=== PATIENT | female | born 1995 | race American Indian/Alaskan Native ===

== ENCOUNTER 2020-03-16 18:59 | Emergency (ER) | payer MEDICAID ==
[2020-03-16] MEDS ORDERED: DIPHtheria,PERTUSSIS(ACELL),TETANUS VACCINE/PF 0.5 ML VIAL IM ONE (20:09)
[2020-03-16] MEDS ORDERED: HYDROcodone/ACETAMINOPHEN 5-325 MG TAB PO ONE (20:10)
[2020-03-16] MEDS ORDERED: ONDANSETRON 4 MG ODT TAB PO ONE (20:10)
--- NOTE | 2020-03-16 20:34 | Emergency Department Report ---
Burn HPI - History Stated Complaint: RT INDEX FINGER Chief Complaint: Burn/Smoke Inhalation Duration of Burn: 2 Days Burn Location: Other (right index finger burn injury) Burn Etiology: Accidental, Scald (hot grease) Pain: Moderate Tetanus Status: Not up to Date (Given during this visit) Symptoms:: Yes Blistering (with open wound), Yes Able to Tolerate Fluids, No Malaise, No Myalgias, No Fever, No Vomiting Other History: Patient is a 24 yo AA female with a h/o obesity who presents to the ED with c/o acute onset persistent painful open blistered burn wound on dorsal right index finger after she acidentally got burned on right index finger with a hot grease 2 days ago. Patient states that she is not upto date with her Tetanus vaccination. Patient denies fever, chills, nausea, vomiting, dizziness, LOC or headache, fall or numbness and tingling or weakness of right index finger. - Home Meds and Allergies Home Medications: Previous Rx's Medication Instructions Recorded Last Taken Type Acetaminophen/Codeine [Tylenol 1 tab PO Q6H PRN #10 tab 03/16/20 Unknown Rx /Codeine # 3 tab] Ibuprofen [Motrin] 800 mg PO Q8HR PRN #24 tablet 03/16/20 Unknown Rx Silver Sulfadiazine [Silvadene] 25 gm TP BID #1 cream..g. 03/16/20 Unknown Rx Allergies/Adverse Reactions: Allergies Allergy/AdvReac Type Severity Reaction Status Date / Time No Known Allergies Allergy Verified 03/16/20 20:12 ED Review of Systems ROS: Stated complaint: RT INDEX FINGER Other details as noted in HPI Constitutional: denies: chills, fever Eyes: denies: eye pain, eye discharge, vision change ENT: denies: ear pain, throat pain Respiratory: denies: cough, shortness of breath, wheezing Cardiovascular: denies: chest pain, palpitations Endocrine: no symptoms reported Gastrointestinal: denies: abdominal pain, nausea, diarrhea Genitourinary: denies: urgency, dysuria, discharge Musculoskeletal: arthralgia (dorsal right index finger blistered painful burn wound). denies: back pain, joint swelling Skin: other (Open blistered burn wound on dorsal right index finger). denies: rash, lesions Neurological: denies: headache, weakness, paresthesias Psychiatric: denies: anxiety, depression Hematological/Lymphatic: denies: easy bleeding, easy bruising ED Past Medical Hx - Past Medical History Previous Medical History?: No - Surgical History Past Surgical History?: No - Social History Smoking Status: Never Smoker Substance Use Type: None - Medications Home Medications: Home Medications Medication Instructions Recorded Confirmed Last Taken Type Acetaminophen/Codeine [Tylenol 1 tab PO Q6H PRN #10 tab 03/16/20 Unknown Rx /Codeine # 3 tab] Ibuprofen [Motrin] 800 mg PO Q8HR PRN #24 tablet 03/16/20 Unknown Rx Silver Sulfadiazine [Silvadene] 25 gm TP BID #1 cream..g. 03/16/20 Unknown Rx Exam - Exam General: Vital signs noted. No distress. Alert and acting appropriately. HEENT: Yes Moist Mucous Membranes, No Conjuctival Injection, No Corneal Edema Skin: Yes Blistering (open blistered burn wound on dorsal right index finger ), Yes Tenderness (right index finger), No Erythroderma, No Edema Exam: Yes Normal Heart Sounds, No Respiratory Distress, No Sensory Deficits, No Musculoskeletal Pain Exam: Normal physical exam findings except as stated ED Course Vital Signs 03/16/20 19:54 Temperature 98.2 F Pulse Rate 85 Respiratory 20 Rate Blood Pressure 124/92 O2 Sat by Pulse 98 Oximetry ED Medical Decision Making - Medical Decision Making This is a 24 yo AA female with a h/o obesity who presents to the ED with c/o acute onset persistent painful open blistered burn wound on dorsal right index finger after she acidentally got burned on right index finger with a hot grease 2 days ago. Patient states that she is not upto date with her Tetanus vaccination. In the ED, patient is alert and oriented x 3 and is in no acute distress. Patient was treated for pain in the ED, and also given Tetanus booster vaccination. The dorsal right index finger open blistered burn wound was cleaned and silvadene cream applied to the same. The wound was then dressed appropriately and patient discharged home on pain medications and silvadene cream. Patient was discharged home and advised to follow up with her PCP in 5-7 days for reevaluation. Patient was also referred to the Burn clinic for follow up. Patient was advised to return to the ED immediately if symptoms get worse. - Differential Diagnosis burn injury; cellulitis; wound infection Critical care attestation.: If time is entered above; I have spent that time in minutes in the direct care of this critically ill patient, excluding procedure time. ED Disposition Clinical Impression: Second degree burn of finger of right hand Qualifiers: Encounter type: initial encounter Qualified Code(s): T23.221A - Burn of second degree of single right finger (nail) except thumb, initial encounter Disposition: DC- TO HOME OR SELFCARE Is pt being admited?: No Does the pt Need Aspirin: No Condition: Stable Instructions: Burn Care, Adult, [id number], Second-Degree Burn, Adult Additional Instructions: FOLLOW UP WITH THE WOUND CLINIC ADVISED. CONSIDER FOLLOWING UP WITH YOUR PRIMARY CARE PHYSICIAN ADVISED. RETURN TO THE ED IMMEDIATELY IF SYMPTOMS GET WORSE Prescriptions: Ibuprofen [Motrin] 800 mg PO Q8HR PRN #24 tablet PRN Reason: Pain , Severe (7-10) Silver Sulfadiazine [Silvadene] 25 gm TP BID #1 cream..g. Acetaminophen/Codeine [Tylenol /Codeine # 3 tab] 1 tab PO Q6H PRN #10 tab PRN Reason: Pain , Severe (7-10) Referrals: [facility] [Outside] - 3-5 Days [facility] [Provider Group] - 3-5 Days Time of Disposition: 20:43 Print Language: URDU
[2020-03-16 21:11] VITALS: BP 128/76
== END 2020-03-16 21:10 | disposition home or self-care (01) ==
LOC: ED 18:59
DX: T23.221A Burn of second degree of single right finger (nail) except thumb, initial encounter (principal); Z79.1 Long term (current) use of non-steroidal anti-inflammatories (NSAID); Z79.899 Other long term (current) drug therapy; X12.XXXA Contact with other hot fluids, initial encounter; Y93.89 Activity, other specified; Y92.89 Other specified places as the place of occurrence of the external cause; Y99.8 Other external cause status
CPT/HCPCS: 90471; 90715; 99282; Q0162

== ENCOUNTER 2020-07-13 19:15 | Inpatient (IN) | payer MEDICAID ==
[2020-07-13 20:52] LABS: Bacteria,Urine 4+ /HPF (Negative); Bilirubin,Urine NEG (Negative); Blood,Urine MOD (Negative); Color,Urine Amber (Yellow); Mucus,Urine 2+ /HPF
[2020-07-13 20:55] LABS: WBC,Urine > 182.0 /HPF (0.0-6.0)
[2020-07-13 20:56] LABS: HCG Qualitative,Urine Negative (Negative)
[2020-07-13] MEDS ORDERED: ONDANSETRON 4 MG/2 ML INJ IV ONE (21:15)
[2020-07-13] MEDS ORDERED: SODIUM CHLORIDE 0.9% 1000 ML 1,000 ML IV ONE ×2 (21:15→23:01)
[2020-07-13] MEDS ORDERED: FAMOTIDINE 20 MG/2 ML INJ IV ONE (21:15)
--- NOTE | 2020-07-13 21:16 | Emergency Department Report ---
ED General Adult HPI - General Chief complaint: Nausea/Vomiting/Diarrhea Stated complaint: STOMACH PAIN Time Seen by Provider: 07/13/20 21:14 Source: patient Mode of arrival: Ambulatory Limitations: No Limitations - History of Present Illness Initial comments: 24-year-old -[place] female patient presents with complaints of sore throat x2 days. Patient states a history of recurrent strep as a child and had her tonsils removed. She states she gets pharyngitis at least once a year since then. She rates her current pain is 8/10 in severity and has not tried any OTC medication for pain. Pain worsens with swallowing, but she denies any diffi culties in swallowing or trouble opening her jaw. No cough, shortness of breath, chest pain, or rash per patient. She denies any other past medical history. -: Sudden - Related Data Previous Rx's Medication Instructions Recorded Last Taken Type Acetaminophen/Codeine [Tylenol 1 tab PO Q6H PRN #10 tab 03/16/20 Unknown Rx /Codeine # 3 tab] Silver Sulfadiazine [Silvadene] 25 gm TP BID #1 cream..g. 03/16/20 Unknown Rx Azithromycin [Zithromax Z-MATT] 0 mg PO DAILY #6 tab 07/14/20 Unknown Rx Ibuprofen [Motrin 800 MG tab] 800 mg PO Q8HR PRN #24 tablet 07/14/20 Unknown Rx Allergies Allergy/AdvReac Type Severity Reaction Status Date / Time No Known Allergies Allergy Verified 03/16/20 20:12 ED Review of Systems ROS: Stated complaint: STOMACH PAIN Other details as noted in HPI Constitutional: malaise. denies: chills, fever ENT: throat pain Respiratory: denies: cough, shortness of breath Cardiovascular: denies: chest pain Gastrointestinal: denies: nausea, vomiting Skin: denies: change in color Neurological: denies: headache Hematological/Lymphatic: swollen glands ED Past Medical Hx - Past Medical History Previous Medical History?: No - Surgical History Past Surgical History?: No - Social History Smoking Status: Never Smoker Substance Use Type: None - Medications Home Medications: Home Medications Medication Instructions Recorded Confirmed Last Taken Type Acetaminophen/Codeine [Tylenol 1 tab PO Q6H PRN #10 tab 03/16/20 Unknown Rx /Codeine # 3 tab] Silver Sulfadiazine [Silvadene] 25 gm TP BID #1 cream..g. 03/16/20 Unknown Rx Azithromycin [Zithromax Z-MATT] 0 mg PO DAILY #6 tab 07/14/20 Unknown Rx Ibuprofen [Motrin 800 MG tab] 800 mg PO Q8HR PRN #24 tablet 07/14/20 Unknown Rx ED Physical Exam - General Limitations: No Limitations General appearance: alert, in no apparent distress - Head Head exam: Present: atraumatic, normocephalic - Eye Eye exam: Present: normal appearance - Expanded ENT Exam Expanded Throat exam: Positive: other (Tonsils are surgically absent; significant erythema of the posterior pharynx noted) - Neck Neck exam: Present: full ROM, lymphadenopathy (Mild anterior cervical). Absent: tenderness - Respiratory Respiratory exam: Present: normal lung sounds bilaterally. Absent: respiratory distress - Cardiovascular Cardiovascular Exam: Present: tachycardia (Mild) - Neurological Exam Neurological exam: Present: alert, oriented X3, normal gait - Psychiatric Psychiatric exam: Present: normal affect, normal mood - Skin Skin exam: Present: warm, dry, intact, normal color. Absent: rash, diaphoretic, petechiae, pallor ED Course Vital Signs 07/13/20 07/13/20 20:01 22:41 Temperature 99.1 F Pulse Rate 114 H 97 H Respiratory 20 18 Rate Blood Pressure 123/82 O2 Sat by Pulse 96 100 Oximetry ED Medical Decision Making - Lab Data Result diagrams: 07/13/20 21:00 07/13/20 21:00 - Radiology Data Radiology results: report reviewed CT ABDOMEN AND PELVIS WITH CONTRAST INDICATION / CLINICAL INFORMATION: Diffuse abdominal pain, worse in mid-upper region. TECHNIQUE: Axial CT images were obtained through the abdomen and pelvis after IV contrast. All CT scans at this location are performed using CT dose reduction for [facility] by means of automated exposure control. COMPARISON: None available. FINDINGS: LOWER CHEST: No significant abnormality. LIVER: Diffuse fatty infiltration. Small lipoma lateral right lobe. GALLBLADDER: No significant abnormality. BILE DUCTS: No significant abnormality. PANCREAS: No significant abnormality. SPLEEN: No significant abnormality. ADRENALS: No significant abnormality. RIGHT KIDNEY / URETER: No significant abnormality. LEFT KIDNEY / URETER: Abnormal enhancement more discrete low-density area measuring 2.1 cm along the anterior medial aspect. Adjacent inflammation. There are also adjacent nodes with the largest measuring 9 mm no greatest short axis dimension. STOMACH / SMALL BOWEL: No significant abnormality. COLON: No significant abnormality. APPENDIX: No significant abnormality. PERITONEUM: No free fluid. No free air. No fluid collection. LYMPH NODES: No significant adenopathy. VASCULAR STRUCTURES: No significant abnormality. URINARY BLADDER: No significant abnormality. REPRODUCTIVE ORGANS: Complex cystic lesion right ovary measuring 4.4 x 2.5 cm. ADDITIONAL FINDINGS: None. SKELETAL SYSTEM: No significant abnormality. IMPRESSION: 1. Pyelonephritis left kidney with possible abscess. Adjacent inflammation and reactive appearing adenopathy. 2. Complex lesion right ovary. This may represent multiple cysts. This could be better evaluated with ultrasound as clinically indicated. - Medical Decision Making 24-year-old -[place] female patient presents with complaints of sore throat x2 days. Patient states a history of recurrent strep as a child and had her tonsils removed. She states she gets pharyngitis at least once a year since then. She rates her current pain is 8/10 in severity and has not tried any OTC medication for pain. Pain worsens with swallowing, but she denies any difficulties in swallowing or trouble opening her jaw. No cough, shortness of breath, chest pain, or rash per patient. She denies any other past medical history. Patient given Tylenol and ibuprofen. Heart rate now normal and temp now 98.5. Will treat for pharyngitis. Recommend follow-up with ENT, referral provided. Patient is nontoxic-appearing and stable for discharge home. Discussed signs and symptoms that should prompt immediate return to the emergency department in detail with patient who verbalizes understanding. Critical care attestation.: If time is entered above; I have spent that time in minutes in the direct care of this critically ill patient, excluding procedure time. ED Disposition Clinical Impression: Acute bacterial pharyngitis Disposition: DC- TO HOME OR SELFCARE Is pt being admited?: No Condition: Stable Instructions: Pharyngitis Prescriptions: Ibuprofen [Motrin 800 MG tab] 800 mg PO Q8HR PRN #24 tablet PRN Reason: pain/fever Azithromycin [Zithromax Z-MATT] 0 mg PO DAILY #6 tab Referrals: [facility] [Provider Group] - 3-5 Days [facility] [Provider Group] - 3-5 Days Forms: Work/School Release Form(ED)
[2020-07-13 21:25] LABS: Hemoglobin 13.4 gm/dl (10.1-14.3); Mean Corpuscular HGB Conc 34 % (30-34); Mean Corpuscular Volume 91 fl (79-97); Platelet Count 177 K/mm3 (140-440); Red Cell Distribution Width 14.4 % (13.2-15.2)
[2020-07-13 21:43] LABS: Alanine Aminotransferase 15 units/L (7-56); Albumin 3.9 g/dL (3.9-5); Blood Urea Nitrogen 5 mg/dL (7-17); Calcium 8.5 mg/dL (8.4-10.2); Hemolysis Index 25
[2020-07-13 21:44] LABS: BUN/Creatinine Ratio 7
[2020-07-13] MEDS ORDERED: cefTRIAXone/NS 1 GM/50 ML 1 GM/50 ML BAG IV ONE (21:44)
[2020-07-13] MEDS ORDERED: MORPHINE 4 MG/1 ML INJ IV ONE (21:47)
--- NOTE | 2020-07-13 23:04 | Cat Scan Report ---
CT ABDOMEN AND PELVIS WITH CONTRAST INDICATION / CLINICAL INFORMATION: Diffuse abdominal pain, worse in mid-upper region. TECHNIQUE: Axial CT images were obtained through the abdomen and pelvis after IV contrast. All CT sc ans at this location are performed using CT dose reduction for [facility] by means of automated exposure c ontrol. COMPARISON: None available. FINDINGS: LOWER CHEST: No significant abnormality. LIVER: Diffuse fatty infiltration. Small lipoma lateral right lobe. GALLBLADDER: No significant abnormality. BILE DUCTS: No significant abnormality. PANCREAS: No significant abnormality. SPLEEN: No significant abnormality. ADRENALS: No significant abnormality. RIGHT KIDNEY / URETER: No significant abnormality. LEFT KIDNEY / URETER: Abnormal enhancement more discrete low-density area measuring 2.1 cm along the anterior medial aspect. Adjacent inflammation. There are also adjacent nodes with the largest measuri ng 9 mm no greatest short axis dimension. STOMACH / SMALL BOWEL: No significant abnormality. COLON: No significant abnormality. APPENDIX: No significant abnormality. PERITONEUM: No free fluid. No free air. No fluid collection. LYMPH NODES: No significant adenopathy. VASCULAR STRUCTURES: No significant abnormality. URINARY BLADDER: No significant abnormality. REPRODUCTIVE ORGANS: Complex cystic lesion right ovary measuring 4.4 x 2.5 cm. ADDITIONAL FINDINGS: None. SKELETAL SYSTEM: No significant abnormality. IMPRESSION: 1. Pyelonephritis left kidney with possible abscess. Adjacent inflammation and reactive appearing avtar nopathy. 2. Complex lesion right ovary. This may represent multiple cysts. This could be better evaluated with ultrasound as clinically indicated. Signer Name: Luis Miguel Adkins MD Signed: 07/13/2020 11:00 PM Workstation Name: [id number]
[2020-07-13] MEDS ORDERED: CEFEPIME/NS 2 GM/100 ML 2 GM/100 ML BAG IV ONE (23:37)
[2020-07-14] MEDS ORDERED: MAGNESIUM HYDROXIDE (MOM) ORAL LIQD UDC PO PRN (01:00)
[2020-07-14] MEDS ORDERED: ALUM-MAG HYDROXIDE-SIMETHICONE 200-200-20MG/5ML ORAL LIQD 30 ML PO PRN (01:00)
[2020-07-14] MEDS ORDERED: ONDANSETRON 4 MG/2 ML INJ IV PRN (01:00)
[2020-07-14] MEDS ORDERED: SENNOSIDES 8.6 MG TAB PO PRN (01:00)
[2020-07-14] MEDS ORDERED: ACETAMINOPHEN 325 MG TAB PO PRN (01:00)
[2020-07-14] MEDS ORDERED: METOCLOPRAMIDE 10 MG/2 ML INJ IV PRN (01:00)
--- NOTE | 2020-07-14 01:17 | History and Physical Report ---
History of Present Illness Date of examination: 07/14/20 Date of admission: 07/14/20 00:21 Chief complaint: abdominal pain Nause and vomiting History of present illness: 24-year-old -[place] female patient presents with complaints of nausea, vomiting, and abdominal pain x2 days. She denies any hematemesis/coffee-ground emesis, stool changes, or urinary symptoms. No cough or shortness of breath per patient. She rates her current abdominal pain as a 9/10 in severity. No known sick contacts per patient. Patient also denies any past medical history. ED work-up shows elevated WBC 19.1, hemoglobin, creatinine 0.7, serum glucose 213, platelets 177, sodium level 129, potassium 3.4. Lactic acid level 1.[address] of the abdomen and pelvis with contrast showed pyelonephritis of left kidney with possible abscess and there adjacent inflammation and reactive appearing adenopathy. Patient seen in the ED at bedside. Patient alert and oriented x3. Patient reports bilateral flank pain, abdominal pain with nausea and vomiting. Pain level at time of assessment was 7/10. Patient started on antibiotic ID consulted for further care managem ent. Reviewed lab, medical record, and vital signs. Patient not in acute distress at time of assessment. Patient denies tobacco use, chronic alcohol use, and illicit drug use. Past History Past Surgical History: No surgical history Social history: no significant social history Family history: no significant family history Medications and Allergies Allergies Allergy/AdvReac Type Severity Reaction Status Date / Time No Known Allergies Allergy Verified 03/16/20 20:12 Home Medications Medication Instructions Recorded Confirmed Last Taken Type Acetaminophen/Codeine [Tylenol 1 tab PO Q6H PRN #10 tab 03/16/20 Unknown Rx /Codeine # 3 tab] Silver Sulfadiazine [Silvadene] 25 gm TP BID #1 cream..g. 03/16/20 Unknown Rx Azithromycin [Zithromax Z-MATT] 0 mg PO DAILY #6 tab 07/14/20 Unknown Rx Ibuprofen [Motrin 800 MG tab] 800 mg PO Q8HR PRN #24 tablet 07/14/20 Unknown Rx Active Meds: Active Medications Acetaminophen (Acetaminophen 325 Mg Tab) 650 mg PO Q4H PRN PRN Reason: Pain MILD(1-3)/Fever >100.5/[place] Al Hydrox/Mg Hydrox/Simethicone (Alum-Mag Hydroxide-Simethicone [id number]/5ml Oral Liqd 30 Ml) 30 ml PO Q4H PRN PRN Reason: Indigestion Famotidine (Famotidine 20 Mg/2 Ml Inj) 20 mg IV BID CINDY Hydromorphone HCl (Hydromorphone 1 Mg/1 Ml Inj) 0.25 mg IV Q4H PRN PRN Reason: Pain, Moderate (4-6) Sodium Chloride (Nacl 0.9% 1000 Ml) 1,000 mls @ 100 mls/hr IV DIRECT CINDY Ceftriaxone Sodium (Rocephin/Ns 2 Gm/100 Ml) 2 gm in 100 mls @ 200 mls/hr IV Q24H CINDY; Protocol Magnesium Hydroxide (Magnesium Hydroxide (Mom) Oral Liqd Udc) 30 ml PO Q4H PRN PRN Reason: Constipation Metoclopramide HCl (Metoclopramide 10 Mg/2 Ml Inj) 10 mg IV Q6H PRN PRN Reason: Nausea And Vomiting Ondansetron HCl (Ondansetron 4 Mg/2 Ml Inj) 4 mg IV Q8H PRN PRN Reason: Nausea And Vomiting Senna (Sennosides 8.6 Mg Tab) 8.6 mg PO Q12HR PRN PRN Reason: Constipation Sodium Chloride (Sodium Chloride 0.9% 10 Ml Flush Syringe) 10 ml IV BID CINDY Sodium Chloride (Sodium Chloride 0.9% 10 Ml Flush Syringe) 10 ml IV PRN PRN PRN Reason: LINE FLUSH Review of Systems Constitutional: malaise Ears, nose, mouth and throat: no epistaxis, no bleeding gums Breasts: no discharge Cardiovascular: no chest pain, no orthopnea Respiratory: no congestion, no wheezing Gastrointestinal: abdominal pain, nausea, vomiting, no melena Rectal: no itching, no hemorrhoids Musculoskeletal: low back pain Integumentary: no rash, no pruritis Neurological: no head injury Psychiatric: no suicidal ideation, no disorientation, no hallucinations Hematologic/Lymphatic: no easy bruising, no easy bleeding Allergic/Immunologic: no urticaria Exam - Constitutional Vitals: Temp Pulse Resp BP Pulse Ox 99.1 F 98 H 18 123/82 100 07/13/20 20:01 07/14/20 00:23 07/13/20 22:41 07/13/20 20:01 07/13/20 22:41 General appearance: Present: mild distress, obese - EENT Eyes: Present: PERRL ENT: hearing intact, clear oral mucosa - Neck Neck: Present: supple, normal ROM - Respiratory Respiratory effort: normal Respiratory: bilateral: CTA - Cardiovascular Heart Sounds: Present: S1 & S2. Absent: rub, click - Extremities Extremities: pulses symmetrical, No edema Peripheral Pulses: within normal limits - Abdominal General gastrointestinal: Present: soft, non-tender, non-distended, normal bowel sounds Female genitourinary: Present: normal - Integumentary Integumentary: Present: clear, warm, dry - Musculoskeletal Musculoskeletal: gait normal, strength equal bilaterally - Psychiatric Psychiatric: appropriate mood/affect, intact judgment & insight, cooperative - Neurologic Neurologic: CNII-XII intact, moves all extremities - Allied Health Allied health notes reviewed: nursing, PT Results - Labs CBC & Chem 7: 07/13/20 21:00 07/13/20 21:00 Labs: Abnormal lab results 07/13/20 07/13/20 07/13/20 Range/Units 21:00 21:00 21:16 WBC 19.1 H (4.5-11.0) K/mm3 Sodium 129 L (137-145) mmol/L Potassium 3.4 L (3.6-5.0) mmol/L Chloride 94.6 L (98-107) mmol/L Carbon Dioxide 21 L (22-30) mmol/L BUN 5 L (7-17) mg/dL Glucose 213 H (65-100) mg/dL Lipase 12 L (13-60) units/L Urine WBC (Auto) (0.0-6.0) /HPF 07/13/20 Range/Units Unknown WBC (4.5-11.0) K/mm3 Sodium (137-145) mmol/L Potassium (3.6-5.0) mmol/L Chloride (98-107) mmol/L Carbon Dioxide (22-30) mmol/L BUN (7-17) mg/dL Glucose (65-100) mg/dL Lipase (13-60) units/L Urine WBC (Auto) > 182.0 H (0.0-6.0) /HPF Assessment and Plan - Patient Problems (1) Pyelonephritis Current Visit: Yes Status: Acute Plan to address problem: blood and urine culture ID consult-continue IV antibiotic CT of the abdomen/pelvis-shows pyelonephritis/possible abscess (2) Abscess of left kidney Current Visit: Yes Status: Acute Plan to address problem: Continue Antibiotics ID consulted (3) Hyponatremia Current Visit: Yes Status: Acute Plan to address problem: continue iv hydration with normal saline Monitor sodium level (4) Leucocytosis Current Visit: Yes Status: Acute Plan to address problem: Most likely 2/2 to UTI Patient on IV hydration and abx monitor WBC (5) Hypokalemia Current Visit: Yes Status: Acute Plan to address problem: Replace potassium Am lab-cmp, cbc, and mag level (6) DVT prophylaxis Current Visit: Yes Status: Acute Plan to address problem: SQ Lovenox (7) Full code status Current Visit: Yes Status: Acute Plan to address problem: Patient is a full code
[2020-07-14] MEDS ORDERED: POTASSIUM CHLORIDE ER 20 MEQ TAB PO ONE (02:26)
[2020-07-14] MEDS: ACETAMINOPHEN 325 MG TAB PO PRN ×2 (02:34→02:37)
[2020-07-14] MEDS: SODIUM CHLORIDE 0.9% 1000 ML 1,000 ML IV SCH ×2 (02:41→23:11)
--- NOTE | 2020-07-14 08:33 | Progress Note ---
Assessment and Plan Assessment and plan: Left pyelonephritis with possible abscess. Sepsis. Present on admission. Patient meets criteria given the tachycardia, fever and diagnosis of pyelonephritis. Hyponatremia. Hypokalemia. Morbid obesity. 07/14/2020. Interventional radiology consultation pending for possible percutaneous drainage if needed. Continue IV antibiotics and await ID consultation. Replete sodium and potassium. Follow-up blood and urine cultures. History Interval history: No new issues overnight Hospitalist Physical - Constitutional Vitals: Temp Pulse Resp BP Pulse Ox 98.5 F 88 18 101/57 99 07/14/20 04:39 07/14/20 04:39 07/14/20 04:39 07/14/20 04:39 07/14/20 04:39 General appearance: Present: no acute distress, obese - EENT Eyes: Present: PERRL, EOM intact ENT: hearing intact, clear oral mucosa, dentition normal - Neck Neck: Present: supple, normal ROM - Respiratory Respiratory effort: normal Respiratory: bilateral: CTA - Cardiovascular Rhythm: regular Heart Sounds: Present: S1 & S2. Absent: gallop, rub - Extremities Extremities: no ischemia, No edema, Full ROM - Abdominal General gastrointestinal: soft, non-tender, non-distended, normal bowel sounds - Integumentary Integumentary: Present: clear, warm, dry - Neurologic Neurologic: CNII-XII intact, moves all extremities Results - Labs CBC & Chem 7: 07/13/20 21:00 07/13/20 21:00 Labs: Laboratory Last Values WBC 19.1 K/mm3 (4.5-11.0) H 07/13/20 21:00 RBC 4.40 M/mm3 (3.65-5.03) 07/13/20 21:00 Hgb 13.4 gm/dl (10.1-14.3) 07/13/20 21:00 Hct 40.0 % (30.3-42.9) 07/13/20 21:00 MCV 91 fl (79-97) 07/13/20 21:00 MCH 31 pg (28-32) 07/13/20 21:00 MCHC 34 % (30-34) 07/13/20 21:00 RDW 14.4 % (13.2-15.2) 07/13/20 21:00 Plt Count 177 K/mm3 (140-440) 07/13/20 21:00 Lymph % (Auto) Compounding Scaler 07/13/20 21:00 [place] % (Auto) Compounding Scaler 07/13/20 21:00 Eos % (Auto) Compounding Scaler 07/13/20 21:00 Baso % (Auto) Compounding Scaler 07/13/20 21:00 Lymph # (Auto) Compounding Scaler 07/13/20 21:00 [place] # (Auto) Compounding Scaler 07/13/20 21:00 Eos # (Auto) Compounding Scaler 07/13/20 21:00 Baso # (Auto) Compounding Scaler 07/13/20 21:00 Seg Neutrophils % Compounding Scaler 07/13/20 21:00 Seg Neutrophils # Compounding Scaler 07/13/20 21:00 Sodium 129 mmol/L (137-145) L 07/13/20 21:00 Potassium 3.4 mmol/L (3.6-5.0) L 07/13/20 21:00 Chloride 94.6 mmol/L (98-107) L 07/13/20 21:00 Carbon Dioxide 21 mmol/L (22-30) L 07/13/20 21:00 Anion Gap 17 mmol/L 07/13/20 21:00 BUN 5 mg/dL (7-17) L 07/13/20 21:00 Creatinine 0.7 mg/dL (0.6-1.2) 07/13/20 21:00 Estimated GFR > 60 ml/min 07/13/20 21:00 BUN/Creatinine Ratio 7 % 07/13/20 21:00 Glucose 213 mg/dL (65-100) H 07/13/20 21:00 Lactic Acid 1.10 mmol/L (0.7-2.0) 07/13/20 23:05 Calcium 8.5 mg/dL (8.4-10.2) 07/13/20 21:00 Magnesium 2.00 mg/dL (1.7-2.3) 07/14/20 05:38 Total Bilirubin 0.50 mg/dL (0.1-1.2) 07/13/20 21:00 AST 16 units/L (5-40) 07/13/20 21:00 ALT 15 units/L (7-56) 07/13/20 21:00 Alkaline Phosphatase 129 units/L (35-129) 07/13/20 21:00 Total Protein 7.8 g/dL (6.3-8.2) 07/13/20 21:00 Albumin 3.9 g/dL (3.9-5) 07/13/20 21:00 Albumin/Globulin Ratio 1.0 % 07/13/20 21:00 Lipase 12 units/L (13-60) L 07/13/20 21:16 Urine Color Rocio (Yellow) 07/13/20 Unknown Urine Turbidity Cloudy (Clear) 07/13/20 Unknown Urine pH 6.0 (5.0-7.0) 07/13/20 Unknown Ur Specific [place] 1.020 (1.003-1.030) 07/13/20 Unknown Urine Protein 100 mg/dl mg/dL (Negative) 07/13/20 Unknown Urine Glucose (UA) Neg mg/dL (Negative) 07/13/20 Unknown Urine Ketones Tr mg/dL (Negative) 07/13/20 Unknown Urine Blood Mod (Negative) 07/13/20 Unknown Urine Nitrite Pos (Negative) 07/13/20 Unknown Urine Bilirubin Neg (Negative) 07/13/20 Unknown Urine Urobilinogen 4.0 mg/dL (<2.0) 07/13/20 Unknown Ur Leukocyte Esterase Lg (Negative) 07/13/20 Unknown Urine WBC (Auto) > 182.0 /HPF (0.0-6.0) H 07/13/20 Unknown Urine RBC (Auto) 32.0 /HPF (0.0-6.0) 07/13/20 Unknown U Epithel Cells (Auto) 13.0 /HPF (0-13.0) 07/13/20 Unknown Urine Bacteria (Auto) 4+ /HPF (Negative) 07/13/20 Unknown Urine Mucus 2+ /HPF 07/13/20 Unknown Urine Yeast (Budding) 2+ /HPF 07/13/20 Unknown Urine HCG, Qual Negative (Negative) 07/13/20 Unknown Blood Type O POSITIVE 07/14/20 01:20 Antibody Screen Negative 07/14/20 01:20 Microbiology: Microbiology 07/13/20 23:05 Peripheral/Venous Blood Culture - Preliminary Culture in Progress 07/13/20 22:45 Peripheral/Venous Blood Culture - Preliminary Culture in Progress Active Medications - Current Medications Current Medications: Generic Name Dose Route Start Last Admin Trade Name Freq PRN Reason Stop Dose Admin Acetaminophen 650 mg 07/14/20 01:00 07/14/20 02:37 Acetaminophen 325 Mg Tab PO 650 mg Q4H PRN Administration Pain MILD(1-3)/Fever >100.5/[place]OUGH Al Hydrox/Mg Hydrox/Simethicone 30 ml 07/14/20 01:00 Alum-Mag Hydroxide-Simethicone [phone]/5ml Oral Liqd 30 Ml PO Q4H PRN Indigestion Enoxaparin Sodium 40 mg 07/14/20 10:00 Enoxaparin 40 Mg/0.4 Ml Inj SUB-Q DAILY [facility] Protocol Famotidine 20 mg 07/14/20 10:00 Famotidine 20 Mg/2 Ml Inj IV BID CINDY Hydromorphone HCl 0.25 mg 07/14/20 01:00 Hydromorphone 1 Mg/1 Ml Inj IV Q4H PRN Pain, Moderate (4-6) Sodium Chloride 1,000 mls @ 100 mls/hr 07/14/20 01:00 07/14/20 02:41 Nacl 0.9% 1000 Ml IV 100 mls/hr DIRECT CINDY Administration Ceftriaxone Sodium 2 gm in 100 mls @ 200 mls/hr 07/14/20 10:00 Rocephin/Ns 2 Gm/100 Ml IV Q24HR CINDY Protocol Magnesium Hydroxide 30 ml 07/14/20 01:00 Magnesium Hydroxide (Mom) Oral Liqd Udc PO Q4H PRN Constipation Metoclopramide HCl 10 mg 07/14/20 01:00 Metoclopramide 10 Mg/2 Ml Inj IV Q6H PRN Nausea And Vomiting Ondansetron HCl 4 mg 07/14/20 01:00 Ondansetron 4 Mg/2 Ml Inj IV Q8H PRN Nausea And Vomiting Senna 8.6 mg 07/14/20 01:00 Sennosides 8.6 Mg Tab PO Q12HR PRN Constipation Sodium Chloride 10 ml 07/14/20 10:00 Sodium Chloride 0.9% 10 Ml Flush Syringe IV BID CINDY Sodium Chloride 10 ml 07/14/20 00:21 Sodium Chloride 0.9% 10 Ml Flush Syringe IV PRN PRN LINE FLUSH
[2020-07-14] MEDS: ENOXAPARIN 40 MG/0.4 ML INJ SUB-Q SCH (09:33)
[2020-07-14] MEDS: cefTRIAXone/NS 2 GM/100 ML 2 GM/100 ML BAG IV SCH (09:34)
[2020-07-14] MEDS: FAMOTIDINE 20 MG/2 ML INJ IV SCH ×2 (09:34→21:16)
--- NOTE | 2020-07-14 15:08 | Consultation ---
History of Present Illness - Reason for Consult Consult date: 07/14/20 Pyelonephritis Requesting physician: WYATT PRATT - History of Present Illness 24-year-old female with history of obesity, admitted on 07/13/2020 secondary to 2-day history of diffuse abdominal pain, nausea, vomiting. Abdominal pain was diffuse and 8 out of 10. No radiation. She denies any dysuria, hematuria, previous kidney stones or UTIs. On arrival, temperature 99.1 went up to 101.7, HR 130, RR 20, O2 sat 96%, BP 123/82. Initial WBC 19,000. Hemoglobin 13.4. Platelets 177. Creatinine 0.7. Glucose 213. Urinalysis with 182 WBCs and large leukocyte esterase. CT of abdomen shows pyelonephritis with a possible abscess 2 x 1 cm. Review of Systems: positive in bold print General: fever, chills, malaise Cutaneous: rash, pruritus Head: headaches or injury Eyes: changes in vision, eye pain, double vision Ears: ear pain, ear discharge, ringing or hearing loss Nose: nose bleeding, stuffiness Mouth & throat: bleeding gums, horseness, no dental problems, or swollen glands Neck: no pain, node enlargement/lumps, tyroid enlargement or tenderness Respiratory: SOB, cough, [place], wheezing, sputum, hemoptysis, pleuritic chest demetria n Cardiovascular: chest pain, leg edema, cyanosis, [place], orthopnea Musculoskeletal: edema, deformities, pain Gastrointestinal: Abdominal pain, nausea, vomiting, hematemesis, diarrhea, constipation, melena, bright red blood in stools, fecal incontinence, jaundice Genitourinary/Reproductive: frequent urination, dysuria, hematuria, incontinence Neurogical: seizures, headaches, weakness, paresthesias, loss of speech or vision; memory loss, vertigo, tremors, numbness Psychiatric: stable mood; excessive anxiety, sadness or moodiness Past History Past Surgical History: No surgical history Social history: no significant social history Family history: no significant family history Medications and Allergies Allergies Allergy/AdvReac Type Severity Reaction Status Date / Time No Known Allergies Allergy Verified 03/16/20 20:12 Home Medications Medication Instructions Recorded Confirmed Last Taken Type Acetaminophen/Codeine [Tylenol 1 tab PO Q6H PRN #10 tab 03/16/20 Unknown Rx /Codeine # 3 tab] Silver Sulfadiazine [Silvadene] 25 gm TP BID #1 cream..g. 03/16/20 Unknown Rx Azithromycin [Zithromax Z-MATT] 0 mg PO DAILY #6 tab 07/14/20 Unknown Rx Ibuprofen [Motrin 800 MG tab] 800 mg PO Q8HR PRN #24 tablet 07/14/20 Unknown Rx Active Meds: Active Medications Acetaminophen (Acetaminophen 325 Mg Tab) 650 mg PO Q4H PRN PRN Reason: Pain MILD(1-3)/Fever >100.5/[place] Last Admin: 07/14/20 02:37 Dose: 650 mg Documented by: Al Hydrox/Mg Hydrox/Simethicone (Alum-Mag Hydroxide-Simethicone [phone]/5ml Oral Liqd 30 Ml) 30 ml PO Q4H PRN PRN Reason: Indigestion Enoxaparin Sodium (Enoxaparin 40 Mg/0.4 Ml Inj) 40 mg SUB-Q DAILY [facility]; Protocol Last Admin: 07/14/20 09:33 Dose: 40 mg Documented by: Famotidine (Famotidine 20 Mg/2 Ml Inj) 20 mg IV BID [facility] Last Admin: 07/14/20 09:34 Dose: 20 mg Documented by: Hydromorphone HCl (Hydromorphone 1 Mg/1 Ml Inj) 0.25 mg IV Q4H PRN PRN Reason: Pain, Moderate (4-6) Sodium Chloride (Nacl 0.9% 1000 Ml) 1,000 mls @ 100 mls/hr IV DIRECT CINDY Last Admin: 07/14/20 02:41 Dose: 100 mls/hr Documented by: Ceftriaxone Sodium (Rocephin/Ns 2 Gm/100 Ml) 2 gm in 100 mls @ 200 mls/hr IV Q24HR CINDY; Protocol Last Infusion: 07/14/20 11:37 Dose: Infused Documented by: Magnesium Hydroxide (Magnesium Hydroxide (Mom) Oral Liqd Udc) 30 ml PO Q4H PRN PRN Reason: Constipation Metoclopramide HCl (Metoclopramide 10 Mg/2 Ml Inj) 10 mg IV Q6H PRN PRN Reason: Nausea And Vomiting Ondansetron HCl (Ondansetron 4 Mg/2 Ml Inj) 4 mg IV Q8H PRN PRN Reason: Nausea And Vomiting Senna (Sennosides 8.6 Mg Tab) 8.6 mg PO Q12HR PRN PRN Reason: Constipation Sodium Chloride (Sodium Chloride 0.9% 10 Ml Flush Syringe) 10 ml IV BID CINDY Last Admin: 07/14/20 09:34 Dose: 10 ml Documented by: Sodium Chloride (Sodium Chloride 0.9% 10 Ml Flush Syringe) 10 ml IV PRN PRN PRN Reason: LINE FLUSH Physical Examination - Physical Exam Narrative exam: General appearance: Alert in NAD pleasant Eyes: anicteric sclerae, moist conjunctivae; no lid-lag; PERRLA HENT: Normocephalic, Atraumatic; normal external ears, nares open, oropharynx clear Neck: supple, tracheal midline, no JVD Lungs: Clear to auscultation CV: RRR no murmur Abdomen: Soft, diffuse tenderness. Extremities: no edema, no cyanosis Skin: No rash. Psych: no agitated Neuro: alert and oriented x 3. Moving all extermities - Constitutional Vitals: Vital Signs Temp Pulse Resp BP Pulse Ox 98.5 F 88 18 101/57 99 07/14/20 04:39 07/14/20 04:39 07/14/20 04:39 07/14/20 04:39 07/14/20 04:39 Temperature -Last 24 Hours Temperature 98.5 F Temperature 101.7 F Temperature 99.1 F Results - Labs CBC & Chem 7: 07/13/20 21:00 07/13/20 21:00 Labs: Abnormal lab results 07/13/20 07/13/20 07/13/20 Range/Units 21:00 21:00 21:16 WBC 19.1 H (4.5-11.0) K/mm3 Sodium 129 L (137-145) mmol/L Potassium 3.4 L (3.6-5.0) mmol/L Chloride 94.6 L (98-107) mmol/L Carbon Dioxide 21 L (22-30) mmol/L BUN 5 L (7-17) mg/dL Glucose 213 H (65-100) mg/dL Lipase 12 L (13-60) units/L Urine WBC (Auto) (0.0-6.0) /HPF 07/13/20 Range/Units Unknown WBC (4.5-11.0) K/mm3 Sodium (137-145) mmol/L Potassium (3.6-5.0) mmol/L Chloride (98-107) mmol/L Carbon Dioxide (22-30) mmol/L BUN (7-17) mg/dL Glucose (65-100) mg/dL Lipase (13-60) units/L Urine WBC (Auto) > 182.0 H (0.0-6.0) /HPF Assessment and Plan Cultures: Blood Culture pending Urine culture pending Assessment: 24-year-old female with history of obesity, admitted on 07/13/2020 secondary to 2-day history of diffuse abdominal pain, nausea, vomiting: #Sepsis: present on admission with fever, tachycardia; source pyelonephritis. #Pyelonephritis with possible left kidney abscess: CT shows left pyelonephritis with a possible abscess 2 x 1 cm. Recommendations: -Follow-up blood cultures and urine culture -Ordered renal ultrasound -CRP -Continue ceftriaxone 2 g IV once a day Will follow. Loulou Willson MD Infectious Diseases Plant Care Worker [facility] M [phone] O [phone]
--- NOTE | 2020-07-14 17:17 | Consultation ---
History of Present Illness - Reason for Consult Consult date: 07/14/20 - History of Present Illness new to our service 24-year-old -[place]omin[place] female patient presents with complaints of nausea, vomiting, and abdominal pain x2 days. She denies any hematemesis/coffee-ground emesis, stool changes, or urinary symptoms. No cough or shortness of breath per patient. She rates her current abdominal pain as a 9/10 in severity. No known sick contacts per patient. Patient also denies any past medical history. ED work-up shows elevated WBC 19.1, hemoglobin, creatinine 0.7, serum glucose 213, platelets 177, sodium level 129, potassium 3.4. Lactic acid level 1.[address] of the abdomen and pelvis with contrast showed pyelonephritis of left kidney with possible abscess and there adjacent inflammation and reactive appearing adenopathy. Patient seen in the ED at bedside. Patient alert and oriented x3. Patient reports bilateral flank pain, abdominal pain with nausea and vomiting. Pain level at time of assessment was 7/10. Patient started on antibiotic ID consulted for further care management. Reviewed lab, medical record, and vital signs. Patient not in acute distress at time of assessment. Patient denies tobacco use, chronic alcohol use, and illicit drug use. abd soft left upper quad/flank soreness A/p pyelonephritis of left kidney with possible abscess appears to have developmental delay hyperglycemia increased BMI recommend conservative mgmt for now agree with ID & IR (pending) consults no open surgery needed at this time Past History Past Surgical History: No surgical history Social history: no significant social history Family history: no significant family history Medications and Allergies Allergies Allergy/AdvReac Type Severity Reaction Status Date / Time No Known Allergies Allergy Verified 03/16/20 20:12 Home Medications Medication Instructions Recorded Confirmed Last Taken Type Acetaminophen/Codeine [Tylenol 1 tab PO Q6H PRN #10 tab 03/16/20 Unknown Rx /Codeine # 3 tab] Silver Sulfadiazine [Silvadene] 25 gm TP BID #1 cream..g. 03/16/20 Unknown Rx Azithromycin [Zithromax Z-MATT] 0 mg PO DAILY #6 tab 07/14/20 Unknown Rx Ibuprofen [Motrin 800 MG tab] 800 mg PO Q8HR PRN #24 tablet 07/14/20 Unknown Rx Active Meds: Active Medications Acetaminophen (Acetaminophen 325 Mg Tab) 650 mg PO Q4H PRN PRN Reason: Pain MILD(1-3)/Fever >100.5/[place] Last Admin: 07/14/20 02:37 Dose: 650 mg Documented by: Al Hydrox/Mg Hydrox/Simethicone (Alum-Mag Hydroxide-Simethicone [phone]/5ml Oral Liqd 30 Ml) 30 ml PO Q4H PRN PRN Reason: Indigestion Enoxaparin Sodium (Enoxaparin 40 Mg/0.4 Ml Inj) 40 mg SUB-Q DAILY [facility]; Protocol Last Admin: 07/14/20 09:33 Dose: 40 mg Documented by: Famotidine (Famotidine 20 Mg/2 Ml Inj) 20 mg IV BID [facility] Last Admin: 07/14/20 09:34 Dose: 20 mg Documented by: Hydromorphone HCl (Hydromorphone 1 Mg/1 Ml Inj) 0.25 mg IV Q4H PRN PRN Reason: Pain, Moderate (4-6) Sodium Chloride (Nacl 0.9% 1000 Ml) 1,000 mls @ 100 mls/hr IV DIRECT CINDY Last Admin: 07/14/20 02:41 Dose: 100 mls/hr Documented by: Ceftriaxone Sodium (Rocephin/Ns 2 Gm/100 Ml) 2 gm in 100 mls @ 200 mls/hr IV Q24HR [facility]; Protocol Last Infusion: 07/14/20 11:37 Dose: Infused Documented by: Magnesium Hydroxide (Magnesium Hydroxide (Mom) Oral Liqd Udc) 30 ml PO Q4H PRN PRN Reason: Constipation Metoclopramide HCl (Metoclopramide 10 Mg/2 Ml Inj) 10 mg IV Q6H PRN PRN Reason: Nausea And Vomiting Ondansetron HCl (Ondansetron 4 Mg/2 Ml Inj) 4 mg IV Q8H PRN PRN Reason: Nausea And Vomiting Senna (Sennosides 8.6 Mg Tab) 8.6 mg PO Q12HR PRN PRN Reason: Constipation Sodium Chloride (Sodium Chloride 0.9% 10 Ml Flush Syringe) 10 ml IV BID [facility] Last Admin: 07/14/20 09:34 Dose: 10 ml Documented by: Sodium Chloride (Sodium Chloride 0.9% 10 Ml Flush Syringe) 10 ml IV PRN PRN PRN Reason: LINE FLUSH Exam - Constitutional Vitals: Temp Pulse Resp BP Pulse Ox 98.5 F 88 18 101/57 99 07/14/20 04:39 07/14/20 04:39 07/14/20 04:39 07/14/20 04:39 07/14/20 04:39 Results - Labs CBC & Chem 7: 07/13/20 21:00 07/13/20 21:00 Labs: Abnormal lab results 07/13/20 07/13/20 07/13/20 Range/Units 21:00 21:00 21:16 WBC 19.1 H (4.5-11.0) K/mm3 Sodium 129 L (137-145) mmol/L Potassium 3.4 L (3.6-5.0) mmol/L Chloride 94.6 L (98-107) mmol/L Carbon Dioxide 21 L (22-30) mmol/L BUN 5 L (7-17) mg/dL Glucose 213 H (65-100) mg/dL C-Reactive Protein (0.00-1.30) mg/dL Lipase 12 L (13-60) units/L Urine WBC (Auto) (0.0-6.0) /HPF 07/13/20 07/14/20 Range/Units Unknown 15:22 WBC (4.5-11.0) K/mm3 Sodium (137-145) mmol/L Potassium (3.6-5.0) mmol/L Chloride (98-107) mmol/L Carbon Dioxide (22-30) mmol/L BUN (7-17) mg/dL Glucose (65-100) mg/dL C-Reactive Protein 21.20 H (0.00-1.30) mg/dL Lipase (13-60) units/L Urine WBC (Auto) > 182.0 H (0.0-6.0) /HPF
[2020-07-15] MEDS: HYDROmorphone 1 MG/1 ML INJ IV PRN ×4 (03:53→22:38)
[2020-07-15 06:22] LABS: Basophils % (Auto) 0.3 % (0.0-1.8); Eosinophils # (Auto) 0.1 K/mm3 (0.0-0.4); Hematocrit 35.1 % (30.3-42.9); Lymphocytes % (Auto) 32.5 % (13.4-35.0); Mean Corpuscular HGB Conc 34 % (30-34); Mean Corpuscular Volume 90 fl (79-97); Monocytes # (Auto) 1.1 K/mm3 (0.0-0.8); Monocytes % (Auto) 11.4 % (0.0-7.3); Platelet Count 170 K/mm3 (140-440); Red Blood Count 3.91 M/mm3 (3.65-5.03); Red Cell Distribution Width 13.9 % (13.2-15.2)
[2020-07-15 06:47] LABS: Alanine Aminotransferase 19 units/L (7-56); Albumin 3.2 g/dL (3.9-5); Blood Urea Nitrogen 5 mg/dL (7-17); Calcium 8.3 mg/dL (8.4-10.2); Hemolysis Index 4
[2020-07-15 06:55] LABS: BUN/Creatinine Ratio 10
--- NOTE | 2020-07-15 07:56 | Progress Note ---
Assessment and Plan Assessment and plan: Left pyelonephritis with possible abscess. Sepsis. Present on admission. Patient meets criteria given the tachycardia, fever and diagnosis of pyelonephritis. Hyponatremia. Hypokalemia. Morbid obesity. 07/14/2020. Interventional radiology consultation pending for possible percutaneous drainage if needed. Continue IV antibiotics and await ID consultation. Replete sodium and potassium. Follow-up blood and urine cultures. 07/15/2020. Follow-up renal ultrasound. Urology recommends conservative management. IR consulted. Continue ceftriaxone 2 g IV daily per ID recommendations. Follow-up CRP, blood and urine cultures History Interval history: No new issues overnight Hospitalist Physical - Constitutional Vitals: Temp Pulse Resp BP Pulse Ox 98.5 F 80 16 114/67 99 07/15/20 04:44 07/15/20 04:44 07/15/20 04:44 07/15/20 04:44 07/15/20 04:44 General appearance: Present: no acute distress, obese - EENT Eyes: Present: PERRL, EOM intact ENT: hearing intact, clear oral mucosa, dentition normal - Neck Neck: Present: supple, normal ROM - Respiratory Respiratory effort: normal Respiratory: bilateral: CTA - Cardiovascular Rhythm: regular Heart Sounds: Present: S1 & S2. Absent: gallop, rub - Extremities Extremities: no ischemia, No edema, Full ROM - Abdominal General gastrointestinal: soft, non-tender, non-distended, normal bowel sounds - Integumentary Integumentary: Present: clear, warm, dry - Neurologic Neurologic: CNII-XII intact, moves all extremities Results - Labs CBC & Chem 7: 07/15/20 05:39 07/15/20 05:39 Labs: Laboratory Last Values WBC 9.4 K/mm3 (4.5-11.0) 07/15/20 05:39 RBC 3.91 M/mm3 (3.65-5.03) 07/15/20 05:39 Hgb 12.0 gm/dl (10.1-14.3) 07/15/20 05:39 Hct 35.1 % (30.3-42.9) 07/15/20 05:39 MCV 90 fl (79-97) 07/15/20 05:39 MCH 31 pg (28-32) 07/15/20 05:39 MCHC 34 % (30-34) 07/15/20 05:39 RDW 13.9 % (13.2-15.2) 07/15/20 05:39 Plt Count 170 K/mm3 (140-440) 07/15/20 05:39 Lymph % (Auto) 32.5 % (13.4-35.0) 07/15/20 05:39 [place] % (Auto) 11.4 % (0.0-7.3) H 07/15/20 05:39 Eos % (Auto) 1.0 % (0.0-4.3) 07/15/20 05:39 Baso % (Auto) 0.3 % (0.0-1.8) 07/15/20 05:39 Lymph # (Auto) 3.0 K/mm3 (1.2-5.4) 07/15/20 05:39 [place] # (Auto) 1.1 K/mm3 (0.0-0.8) H 07/15/20 05:39 Eos # (Auto) 0.1 K/mm3 (0.0-0.4) 07/15/20 05:39 Baso # (Auto) 0.0 K/mm3 (0.0-0.1) 07/15/20 05:39 Seg Neutrophils % 54.8 % (40.0-70.0) 07/15/20 05:39 Seg Neutrophils # 5.1 K/mm3 (1.8-7.7) 07/15/20 05:39 Sodium 136 mmol/L (137-145) L D 07/15/20 05:39 Potassium 3.8 mmol/L (3.6-5.0) 07/15/20 05:39 Chloride 100.6 mmol/L (98-107) 07/15/20 05:39 Carbon Dioxide 25 mmol/L (22-30) 07/15/20 05:39 Anion Gap 14 mmol/L 07/15/20 05:39 BUN 5 mg/dL (7-17) L 07/15/20 05:39 Creatinine 0.5 mg/dL (0.6-1.2) L 07/15/20 05:39 Estimated GFR > 60 ml/min 07/15/20 05:39 BUN/Creatinine Ratio 10 % 07/15/20 05:39 Glucose 186 mg/dL (65-100) H 07/15/20 05:39 Lactic Acid 1.10 mmol/L (0.7-2.0) 07/13/20 23:05 Calcium 8.3 mg/dL (8.4-10.2) L 07/15/20 05:39 Magnesium 2.00 mg/dL (1.7-2.3) 07/14/20 05:38 Total Bilirubin 0.20 mg/dL (0.1-1.2) 07/15/20 05:39 AST 25 units/L (5-40) 07/15/20 05:39 ALT 19 units/L (7-56) 07/15/20 05:39 Alkaline Phosphatase 114 units/L (35-129) 07/15/20 05:39 C-Reactive Protein 21.20 mg/dL (0.00-1.30) H 07/14/20 15:22 Total Protein 6.9 g/dL (6.3-8.2) 07/15/20 05:39 Albumin 3.2 g/dL (3.9-5) L 07/15/20 05:39 Albumin/Globulin Ratio 0.9 % 07/15/20 05:39 Lipase 12 units/L (13-60) L 07/13/20 21:16 Urine Color Rocio (Yellow) 07/13/20 Unknown Urine Turbidity Cloudy (Clear) 07/13/20 Unknown Urine pH 6.0 (5.0-7.0) 07/13/20 Unknown Ur Specific [place] 1.020 (1.003-1.030) 07/13/20 Unknown Urine Protein 100 mg/dl mg/dL (Negative) 07/13/20 Unknown Urine Glucose (UA) Neg mg/dL (Negative) 07/13/20 Unknown Urine Ketones Tr mg/dL (Negative) 07/13/20 Unknown Urine Blood Mod (Negative) 07/13/20 Unknown Urine Nitrite Pos (Negative) 07/13/20 Unknown Urine Bilirubin Neg (Negative) 07/13/20 Unknown Urine Urobilinogen 4.0 mg/dL (<2.0) 07/13/20 Unknown Ur Leukocyte Esterase Lg (Negative) 07/13/20 Unknown Urine WBC (Auto) > 182.0 /HPF (0.0-6.0) H 07/13/20 Unknown Urine RBC (Auto) 32.0 /HPF (0.0-6.0) 07/13/20 Unknown U Epithel Cells (Auto) 13.0 /HPF (0-13.0) 07/13/20 Unknown Urine Bacteria (Auto) 4+ /HPF (Negative) 07/13/20 Unknown Urine Mucus 2+ /HPF 07/13/20 Unknown Urine Yeast (Budding) 2+ /HPF 07/13/20 Unknown Urine HCG, Qual Negative (Negative) 07/13/20 Unknown Blood Type O POSITIVE 07/14/20 01:20 Antibody Screen Negative 07/14/20 01:20 Microbiology: Microbiology 07/13/20 23:05 Peripheral/Venous Blood Culture - Preliminary NO GROWTH AFTER 24 HOURS 07/13/20 22:45 Peripheral/Venous Blood Culture - Preliminary NO GROWTH AFTER 24 HOURS Cosme/IV: Voiding Method Toilet Active Medications - Current Medications Current Medications: Generic Name Dose Route Start Last Admin Trade Name Freq PRN Reason Stop Dose Admin Acetaminophen 650 mg 07/14/20 01:00 07/14/20 02:37 Acetaminophen 325 Mg Tab PO 650 mg Q4H PRN Administration Pain MILD(1-3)/Fever >100.5/[place]OUGH Al Hydrox/Mg Hydrox/Simethicone 30 ml 07/14/20 01:00 Alum-Mag Hydroxide-Simethicone [phone]/5ml Oral Liqd 30 Ml PO Q4H PRN Indigestion Enoxaparin Sodium 40 mg 07/14/20 10:00 07/14/20 09:33 Enoxaparin 40 Mg/0.4 Ml Inj SUB-Q 40 mg DAILY CINDY Administration Protocol Famotidine 20 mg 07/14/20 10:00 07/14/20 21:16 Famotidine 20 Mg/2 Ml Inj IV 20 mg BID CINDY Administration Hydromorphone HCl 0.25 mg 07/14/20 01:00 07/15/20 03:53 Hydromorphone 1 Mg/1 Ml Inj IV 0.25 mg Q4H PRN Administration Pain, Moderate (4-6) Sodium Chloride 1,000 mls @ 100 mls/hr 07/14/20 01:00 07/14/20 23:11 Nacl 0.9% 1000 Ml IV 100 mls/hr DIRECT CINDY Administration Ceftriaxone Sodium 2 gm in 100 mls @ 200 mls/hr 07/14/20 10:00 07/14/20 11:37 Rocephin/Ns 2 Gm/100 Ml IV Infused Q24HR CINDY Infusion Protocol Magnesium Hydroxide 30 ml 07/14/20 01:00 Magnesium Hydroxide (Mom) Oral Liqd Udc PO Q4H PRN Constipation Metoclopramide HCl 10 mg 07/14/20 01:00 Metoclopramide 10 Mg/2 Ml Inj IV Q6H PRN Nausea And Vomiting Ondansetron HCl 4 mg 07/14/20 01:00 Ondansetron 4 Mg/2 Ml Inj IV Q8H PRN Nausea And Vomiting Senna 8.6 mg 07/14/20 01:00 Sennosides 8.6 Mg Tab PO Q12HR PRN Constipation Sodium Chloride 10 ml 07/14/20 10:00 07/14/20 21:17 Sodium Chloride 0.9% 10 Ml Flush Syringe IV 10 ml BID CINDY Administration Sodium Chloride 10 ml 07/14/20 00:21 Sodium Chloride 0.9% 10 Ml Flush Syringe IV PRN PRN LINE FLUSH
[2020-07-15] MEDS: SODIUM CHLORIDE 0.9% 1000 ML 1,000 ML IV SCH ×2 (09:03→22:38)
[2020-07-15] MEDS: cefTRIAXone/NS 2 GM/100 ML 2 GM/100 ML BAG IV SCH (09:03)
[2020-07-15] MEDS: FAMOTIDINE 20 MG/2 ML INJ IV SCH ×2 (09:04→21:55)
[2020-07-15] MEDS: ENOXAPARIN 40 MG/0.4 ML INJ SUB-Q SCH (09:04)
[2020-07-15] MEDS: ACETAMINOPHEN 325 MG TAB PO PRN (09:22)
--- NOTE | 2020-07-15 12:15 | Ultrasound Report ---
Renal ultrasound INDICATION: Acute renal failure FINDINGS: The right kidney measures 11 cm in length and the left kidney measures about 14 cm in lengt h. No hydronephrosis. IMPRESSION: No evidence of hydronephrosis. The left kidney is enlarged with respect to the right kidn ey. No perinephric fluid collections identified. Recent CT from 07/13/2020 demonstrated bilateral neph ritis within the left kidney. Signer Name: Ad Pretty MD Signed: 07/15/2020 12:11 PM Workstation Name: [id number]
[2020-07-16] MEDS: SODIUM CHLORIDE 0.9% 1000 ML 1,000 ML IV SCH ×2 (07:06→17:31)
--- NOTE | 2020-07-16 07:58 | Progress Note ---
Assessment and Plan Assessment and plan: Left pyelonephritis with possible abscess. Sepsis. Present on admission. Patient meets criteria given the tachycardia, fever and diagnosis of pyelonephritis. Hyponatremia. Hypokalemia. Morbid obesity. 07/14/2020. Interventional radiology consultation pending for possible percutaneous drainage if needed. Continue IV antibiotics and await ID consultation. Replete sodium and potassium. Follow-up blood and urine cultures. 07/15/2020. Follow-up renal ultrasound. Urology recommends conservative management. IR consulted. Continue ceftriaxone 2 g IV daily per ID recommendations. Follow-up CRP, blood and urine cultures 07/16/2020. Renal ultrasound reveals no evidence of hydronephrosis. The left kidney is enlarged with respect to the right kidney. No perinephric fluid collections identified. Continue conservative management with supportive care and IV antibiotics of ceftriaxone 2 g IV daily per ID and urology recommendations. Follow-up CRP, blood and urine cultures. History Interval history: No new issues overnight Hospitalist Physical - Constitutional Vitals: Temp Pulse Resp BP Pulse Ox 98.5 F 90 17 95/57 100 07/16/20 05:37 07/16/20 05:37 07/16/20 05:37 07/16/20 05:37 07/16/20 05:37 General appearance: Present: no acute distress, obese - EENT Eyes: Present: PERRL, EOM intact ENT: hearing intact, clear oral mucosa, dentition normal - Neck Neck: Present: supple, normal ROM - Respiratory Respiratory effort: normal Respiratory: bilateral: CTA - Cardiovascular Rhythm: regular Heart Sounds: Present: S1 & S2. Absent: gallop, rub - Extremities Extremities: no ischemia, No edema, Full ROM - Abdominal General gastrointestinal: soft, non-tender, non-distended, normal bowel sounds - Integumentary Integumentary: Present: clear, warm, dry - Neurologic Neurologic: CNII-XII intact, moves all extremities Results - Labs CBC & Chem 7: 07/15/20 05:39 07/15/20 05:39 Labs: Laboratory Last Values WBC 9.4 K/mm3 (4.5-11.0) 07/15/20 05:39 RBC 3.91 M/mm3 (3.65-5.03) 07/15/20 05:39 Hgb 12.0 gm/dl (10.1-14.3) 07/15/20 05:39 Hct 35.1 % (30.3-42.9) 07/15/20 05:39 MCV 90 fl (79-97) 07/15/20 05:39 MCH 31 pg (28-32) 07/15/20 05:39 MCHC 34 % (30-34) 07/15/20 05:39 RDW 13.9 % (13.2-15.2) 07/15/20 05:39 Plt Count 170 K/mm3 (140-440) 07/15/20 05:39 Lymph % (Auto) 32.5 % (13.4-35.0) 07/15/20 05:39 Bureau % (Auto) 11.4 % (0.0-7.3) H 07/15/20 05:39 Eos % (Auto) 1.0 % (0.0-4.3) 07/15/20 05:39 Baso % (Auto) 0.3 % (0.0-1.8) 07/15/20 05:39 Lymph # (Auto) 3.0 K/mm3 (1.2-5.4) 07/15/20 05:39 Bureau # (Auto) 1.1 K/mm3 (0.0-0.8) H 07/15/20 05:39 Eos # (Auto) 0.1 K/mm3 (0.0-0.4) 07/15/20 05:39 Baso # (Auto) 0.0 K/mm3 (0.0-0.1) 07/15/20 05:39 Seg Neutrophils % 54.8 % (40.0-70.0) 07/15/20 05:39 Seg Neutrophils # 5.1 K/mm3 (1.8-7.7) 07/15/20 05:39 Sodium 136 mmol/L (137-145) L D 07/15/20 05:39 Potassium 3.8 mmol/L (3.6-5.0) 07/15/20 05:39 Chloride 100.6 mmol/L (98-107) 07/15/20 05:39 Carbon Dioxide 25 mmol/L (22-30) 07/15/20 05:39 Anion Gap 14 mmol/L 07/15/20 05:39 BUN 5 mg/dL (7-17) L 07/15/20 05:39 Creatinine 0.5 mg/dL (0.6-1.2) L 07/15/20 05:39 Estimated GFR > 60 ml/min 07/15/20 05:39 BUN/Creatinine Ratio 10 % 07/15/20 05:39 Glucose 186 mg/dL (65-100) H 07/15/20 05:39 Lactic Acid 1.10 mmol/L (0.7-2.0) 07/13/20 23:05 Calcium 8.3 mg/dL (8.4-10.2) L 07/15/20 05:39 Magnesium 2.00 mg/dL (1.7-2.3) 07/14/20 05:38 Total Bilirubin 0.20 mg/dL (0.1-1.2) 07/15/20 05:39 AST 25 units/L (5-40) 07/15/20 05:39 ALT 19 units/L (7-56) 07/15/20 05:39 Alkaline Phosphatase 114 units/L (35-129) 07/15/20 05:39 C-Reactive Protein 21.20 mg/dL (0.00-1.30) H 07/14/20 15:22 Total Protein 6.9 g/dL (6.3-8.2) 07/15/20 05:39 Albumin 3.2 g/dL (3.9-5) L 07/15/20 05:39 Albumin/Globulin Ratio 0.9 % 07/15/20 05:39 Lipase 12 units/L (13-60) L 07/13/20 21:16 Urine Color Rocio (Yellow) 07/13/20 Unknown Urine Turbidity Cloudy (Clear) 07/13/20 Unknown Urine pH 6.0 (5.0-7.0) 07/13/20 Unknown Ur Specific [place] 1.020 (1.003-1.030) 07/13/20 Unknown Urine Protein 100 mg/dl mg/dL (Negative) 07/13/20 Unknown Urine Glucose (UA) Neg mg/dL (Negative) 07/13/20 Unknown Urine Ketones Tr mg/dL (Negative) 07/13/20 Unknown Urine Blood Mod (Negative) 07/13/20 Unknown Urine Nitrite Pos (Negative) 07/13/20 Unknown Urine Bilirubin Neg (Negative) 07/13/20 Unknown Urine Urobilinogen 4.0 mg/dL (<2.0) 07/13/20 Unknown Ur Leukocyte Esterase Lg (Negative) 07/13/20 Unknown Urine WBC (Auto) > 182.0 /HPF (0.0-6.0) H 07/13/20 Unknown Urine RBC (Auto) 32.0 /HPF (0.0-6.0) 07/13/20 Unknown U Epithel Cells (Auto) 13.0 /HPF (0-13.0) 07/13/20 Unknown Urine Bacteria (Auto) 4+ /HPF (Negative) 07/13/20 Unknown Urine Mucus 2+ /HPF 07/13/20 Unknown Urine Yeast (Budding) 2+ /HPF 07/13/20 Unknown Urine HCG, Qual Negative (Negative) 07/13/20 Unknown Blood Type O POSITIVE 07/14/20 01:20 Antibody Screen Negative 07/14/20 01:20 Microbiology: Microbiology 07/13/20 23:05 Peripheral/Venous Blood Culture - Preliminary NO GROWTH AFTER 48 HOURS 07/13/20 22:45 Peripheral/Venous Blood Culture - Preliminary NO GROWTH AFTER 48 HOURS Cosme/IV: Voiding Method Toilet Active Medications - Current Medications Current Medications: Generic Name Dose Route Start Last Admin Trade Name Freq PRN Reason Stop Dose Admin Acetaminophen 650 mg 07/14/20 01:00 07/15/20 09:22 Acetaminophen 325 Mg Tab PO 650 mg Q4H PRN Administration Pain MILD(1-3)/Fever >100.5/[place]OUGH Al Hydrox/Mg Hydrox/Simethicone 30 ml 07/14/20 01:00 Alum-Mag Hydroxide-Simethicone [phone]/5ml Oral Liqd 30 Ml PO Q4H PRN Indigestion Enoxaparin Sodium 40 mg 07/14/20 10:00 07/15/20 09:04 Enoxaparin 40 Mg/0.4 Ml Inj SUB-Q 40 mg DAILY CINDY Administration Protocol Famotidine 20 mg 07/14/20 10:00 07/15/20 21:55 Famotidine 20 Mg/2 Ml Inj IV 20 mg BID CINDY Administration Hydromorphone HCl 0.25 mg 07/14/20 01:00 07/15/20 22:38 Hydromorphone 1 Mg/1 Ml Inj IV 0.25 mg Q4H PRN Administration Pain, Moderate (4-6) Sodium Chloride 1,000 mls @ 100 mls/hr 07/14/20 01:00 07/16/20 07:06 Nacl 0.9% 1000 Ml IV 100 mls/hr DIRECT CINDY Administration Ceftriaxone Sodium 2 gm in 100 mls @ 200 mls/hr 07/14/20 10:00 07/15/20 09:03 Rocephin/Ns 2 Gm/100 Ml IV 200 mls/hr Q24HR CINDY Administration Protocol Magnesium Hydroxide 30 ml 07/14/20 01:00 Magnesium Hydroxide (Mom) Oral Liqd Udc PO Q4H PRN Constipation Metoclopramide HCl 10 mg 07/14/20 01:00 Metoclopramide 10 Mg/2 Ml Inj IV Q6H PRN Nausea And Vomiting Ondansetron HCl 4 mg 07/14/20 01:00 Ondansetron 4 Mg/2 Ml Inj IV Q8H PRN Nausea And Vomiting Senna 8.6 mg 07/14/20 01:00 Sennosides 8.6 Mg Tab PO Q12HR PRN Constipation Sodium Chloride 10 ml 07/14/20 10:00 07/15/20 21:56 Sodium Chloride 0.9% 10 Ml Flush Syringe IV 10 ml BID CINDY Administration Sodium Chloride 10 ml 07/14/20 00:21 Sodium Chloride 0.9% 10 Ml Flush Syringe IV PRN PRN LINE FLUSH
[2020-07-16 08:00] LABS: Basophils % (Auto) 0.3 % (0.0-1.8); Eosinophils # (Auto) 0.1 K/mm3 (0.0-0.4); Eosinophils % (Auto) 0.7 % (0.0-4.3); Hematocrit 33.3 % (30.3-42.9); Hemoglobin 11.5 gm/dl (10.1-14.3); Lymphocytes # (Auto) 3.2 K/mm3 (1.2-5.4); Lymphocytes % (Auto) 32.3 % (13.4-35.0); Mean Corpuscular HGB Conc 35 % (30-34); Mean Corpuscular Volume 90 fl (79-97); Monocytes # (Auto) 0.9 K/mm3 (0.0-0.8); Monocytes % (Auto) 9.3 % (0.0-7.3); Platelet Count 183 K/mm3 (140-440); Red Blood Count 3.72 M/mm3 (3.65-5.03); Red Cell Distribution Width 14.2 % (13.2-15.2)
[2020-07-16 08:16] LABS: BUN/Creatinine Ratio 8; Blood Urea Nitrogen 4 mg/dL (7-17); Calcium 8.2 mg/dL (8.4-10.2); Hemolysis Index 1
[2020-07-16] MEDS: ENOXAPARIN 40 MG/0.4 ML INJ SUB-Q SCH ×2 (09:00→09:09)
[2020-07-16] MEDS: cefTRIAXone/NS 2 GM/100 ML 2 GM/100 ML BAG IV SCH (09:01)
[2020-07-16] MEDS: FAMOTIDINE 20 MG/2 ML INJ IV SCH ×2 (09:01→22:47)
[2020-07-16] MEDS: HYDROmorphone 1 MG/1 ML INJ IV PRN ×3 (13:08→22:42)
--- NOTE | 2020-07-16 14:14 | Progress Note ---
Assessment and Plan Cultures: Blood Culture no growth today Urine culture gram-negative bacilli Assessment: 24-year-old female with history of obesity, admitted on 07/13/2020 secondary to 2-day history of diffuse abdominal pain, nausea, vomiting: #Sepsis: improving, leukocytosis resolved; source pyelonephritis. #Pyelonephritis with possible left kidney abscess: CT shows left pyelonephritis with a possible abscess 2 x 1 cm. CRP=21. Ultrasound showed left kidney larger than right. Recommendations: -Follow-up urine culture growing gram-negative bacilli -Continue ceftriaxone 2 g IV once a day -If urine culture isolate is susceptible to Levaquin, will discharge on Levaquin 750 mg p.o. once a day total 10 days (morbidly obese BMI 40) -Okay to discharge tomorrow if clinically stable, recheck CRP Will follow. Loulou Willson MD Infectious Diseases [facility] ([facility]) M [phone] O [phone] Subjective Date of service: 07/16/20 Principal diagnosis: UTI Interval history: Patient feels better, no fever. Denies any pain. Objective - Exam Narrative Exam: General appearance: Alert in NAD pleasant Eyes: anicteric sclerae, moist conjunctivae; no lid-lag; PERRLA HENT: Normocephalic, Atraumatic; normal external ears, nares open, oropharynx clear Neck: supple, tracheal midline, no JVD Lungs: Clear to auscultation CV: RRR no murmur Abdomen: Soft, diffuse tenderness. Extremities: no edema, no cyanosis Skin: No rash. Psych: no agitated Neuro: alert and oriented x 3. Moving all extermities - Constitutional Vitals: Vital Signs Temp Pulse Resp BP Pulse Ox 98.5 F 90 17 95/57 100 07/16/20 05:37 07/16/20 05:37 07/16/20 05:37 07/16/20 05:37 07/16/20 05:37 Temperature -Last 24 Hours Temperature 98.5 F Temperature 97.8 F Temperature 97.6 F - Labs CBC & Chem 7: 07/16/20 07:15 07/16/20 07:15 Labs: Abnormal lab results 07/16/20 07/16/20 Range/Units 07:15 07:15 MCHC 35 H (30-34) % [place] % (Auto) 9.3 H (0.0-7.3) % [place] # (Auto) 0.9 H (0.0-0.8) K/mm3 Sodium 135 L (137-145) mmol/L BUN 4 L (7-17) mg/dL Creatinine 0.5 L (0.6-1.2) mg/dL Glucose 163 H (65-100) mg/dL Calcium 8.2 L (8.4-10.2) mg/dL
[2020-07-17] MEDS: HYDROmorphone 1 MG/1 ML INJ IV PRN ×4 (03:38→22:19)
[2020-07-17] MEDS: SODIUM CHLORIDE 0.9% 1000 ML 1,000 ML IV SCH ×2 (03:38→15:39)
--- NOTE | 2020-07-17 07:55 | Progress Note ---
Assessment and Plan Assessment and plan: Left pyelonephritis with possible abscess. Sepsis. Present on admission. Patient meets criteria given the tachycardia, fever and diagnosis of pyelonephritis. Hyponatremia. Hypokalemia. Morbid obesity. 07/14/2020. Interventional radiology consultation pending for possible percutaneous drainage if needed. Continue IV antibiotics and await ID consultation. Replete sodium and potassium. Follow-up blood and urine cultures. 07/15/2020. Follow-up renal ultrasound. Urology recommends conservative management. IR consulted. Continue ceftriaxone 2 g IV daily per ID recommendations. Follow-up CRP, blood and urine cultures 07/16/2020. Renal ultrasound reveals no evidence of hydronephrosis. The left kidney is enlarged with respect to the right kidney. No perinephric fluid collections identified. Continue conservative management with supportive care and IV antibiotics of ceftriaxone 2 g IV daily per ID and urology recommendations. Follow-up CRP, blood and urine cultures. 07/17/2020. Urine culture reveals gram-negative bacilli. Follow-up identification and sensitivities. Continue ceftriaxone per ID recommendations. Consider discharge with Levaquin 750 p.o. for total of 10 days. Blood cultures remain negative. Anticipate discharge later today or in a.m. History Interval history: No new issues overnight Hospitalist Physical - Constitutional Vitals: Temp Pulse Resp BP Pulse Ox 97.5 F L 83 18 113/75 97 07/17/20 04:43 07/17/20 04:43 07/17/20 04:43 07/17/20 04:43 07/17/20 04:43 General appearance: Present: no acute distress, obese - EENT Eyes: Present: PERRL, EOM intact ENT: hearing intact, clear oral mucosa, dentition normal - Neck Neck: Present: supple, normal ROM - Respiratory Respiratory effort: normal Respiratory: bilateral: CTA - Cardiovascular Rhythm: regular Heart Sounds: Present: S1 & S2. Absent: gallop, rub - Extremities Extremities: no ischemia, No edema, Full ROM - Abdominal General gastrointestinal: soft, non-tender, non-distended, normal bowel sounds - Integumentary Integumentary: Present: clear, warm, dry - Neurologic Neurologic: CNII-XII intact, moves all extremities Results - Labs CBC & Chem 7: 07/16/20 07:15 07/16/20 07:15 Labs: Laboratory Last Values WBC 10.0 K/mm3 (4.5-11.0) 07/16/20 07:15 RBC 3.72 M/mm3 (3.65-5.03) 07/16/20 07:15 Hgb 11.5 gm/dl (10.1-14.3) 07/16/20 07:15 Hct 33.3 % (30.3-42.9) 07/16/20 07:15 MCV 90 fl (79-97) 07/16/20 07:15 MCH 31 pg (28-32) 07/16/20 07:15 MCHC 35 % (30-34) H 07/16/20 07:15 RDW 14.2 % (13.2-15.2) 07/16/20 07:15 Plt Count 183 K/mm3 (140-440) 07/16/20 07:15 Lymph % (Auto) 32.3 % (13.4-35.0) 07/16/20 07:15 [place] % (Auto) 9.3 % (0.0-7.3) H 07/16/20 07:15 Eos % (Auto) 0.7 % (0.0-4.3) 07/16/20 07:15 Baso % (Auto) 0.3 % (0.0-1.8) 07/16/20 07:15 Lymph # (Auto) 3.2 K/mm3 (1.2-5.4) 07/16/20 07:15 [place] # (Auto) 0.9 K/mm3 (0.0-0.8) H 07/16/20 07:15 Eos # (Auto) 0.1 K/mm3 (0.0-0.4) 07/16/20 07:15 Baso # (Auto) 0.0 K/mm3 (0.0-0.1) 07/16/20 07:15 Seg Neutrophils % 57.4 % (40.0-70.0) 07/16/20 07:15 Seg Neutrophils # 5.7 K/mm3 (1.8-7.7) 07/16/20 07:15 Sodium 135 mmol/L (137-145) L 07/16/20 07:15 Potassium 3.7 mmol/L (3.6-5.0) 07/16/20 07:15 Chloride 100.5 mmol/L (98-107) 07/16/20 07:15 Carbon Dioxide 25 mmol/L (22-30) 07/16/20 07:15 Anion Gap 13 mmol/L 07/16/20 07:15 BUN 4 mg/dL (7-17) L 07/16/20 07:15 Creatinine 0.5 mg/dL (0.6-1.2) L 07/16/20 07:15 Estimated GFR > 60 ml/min 07/16/20 07:15 BUN/Creatinine Ratio 8 % 07/16/20 07:15 Glucose 163 mg/dL (65-100) H 07/16/20 07:15 Lactic Acid 1.10 mmol/L (0.7-2.0) 07/13/20 23:05 Calcium 8.2 mg/dL (8.4-10.2) L 07/16/20 07:15 Magnesium 2.00 mg/dL (1.7-2.3) 07/14/20 05:38 Total Bilirubin 0.20 mg/dL (0.1-1.2) 07/15/20 05:39 AST 25 units/L (5-40) 07/15/20 05:39 ALT 19 units/L (7-56) 07/15/20 05:39 Alkaline Phosphatase 114 units/L (35-129) 07/15/20 05:39 C-Reactive Protein 8.80 mg/dL (0.00-1.30) H 07/16/20 15:02 Total Protein 6.9 g/dL (6.3-8.2) 07/15/20 05:39 Albumin 3.2 g/dL (3.9-5) L 07/15/20 05:39 Albumin/Globulin Ratio 0.9 % 07/15/20 05:39 Lipase 12 units/L (13-60) L 07/13/20 21:16 Urine Color Rocio (Yellow) 07/13/20 Unknown Urine Turbidity Cloudy (Clear) 07/13/20 Unknown Urine pH 6.0 (5.0-7.0) 07/13/20 Unknown Ur Specific [place] 1.020 (1.003-1.030) 07/13/20 Unknown Urine Protein 100 mg/dl mg/dL (Negative) 07/13/20 Unknown Urine Glucose (UA) Neg mg/dL (Negative) 07/13/20 Unknown Urine Ketones Tr mg/dL (Negative) 07/13/20 Unknown Urine Blood Mod (Negative) 07/13/20 Unknown Urine Nitrite Pos (Negative) 07/13/20 Unknown Urine Bilirubin Neg (Negative) 07/13/20 Unknown Urine Urobilinogen 4.0 mg/dL (<2.0) 07/13/20 Unknown Ur Leukocyte Esterase Lg (Negative) 07/13/20 Unknown Urine WBC (Auto) > 182.0 /HPF (0.0-6.0) H 07/13/20 Unknown Urine RBC (Auto) 32.0 /HPF (0.0-6.0) 07/13/20 Unknown U Epithel Cells (Auto) 13.0 /HPF (0-13.0) 07/13/20 Unknown Urine Bacteria (Auto) 4+ /HPF (Negative) 07/13/20 Unknown Urine Mucus 2+ /HPF 07/13/20 Unknown Urine Yeast (Budding) 2+ /HPF 07/13/20 Unknown Urine HCG, Qual Negative (Negative) 07/13/20 Unknown Blood Type O POSITIVE 07/14/20 01:20 Antibody Screen Negative 07/14/20 01:20 Microbiology: Microbiology 07/13/20 23:05 Peripheral/Venous Blood Culture - Preliminary NO GROWTH AFTER 72 HOURS 07/13/20 22:45 Peripheral/Venous Blood Culture - Preliminary NO GROWTH AFTER 72 HOURS 07/14/20 Unknown Urine,Clean Catch Urine Culture - Preliminary Gram Negative Calvin Cosme/IV: Voiding Method Toilet Active Medications - Current Medications Current Medications: Generic Name Dose Route Start Last Admin Trade Name Freq PRN Reason Stop Dose Admin Acetaminophen 650 mg 07/14/20 01:00 07/15/20 09:22 Acetaminophen 325 Mg Tab PO 650 mg Q4H PRN Administration Pain MILD(1-3)/Fever >100.5/[place]OUGH Al Hydrox/Mg Hydrox/Simethicone 30 ml 07/14/20 01:00 Alum-Mag Hydroxide-Simethicone [phone]/5ml Oral Liqd 30 Ml PO Q4H PRN Indigestion Enoxaparin Sodium 40 mg 07/14/20 10:00 07/16/20 09:09 Enoxaparin 40 Mg/0.4 Ml Inj SUB-Q Not Given DAILY [facility] Protocol Famotidine 20 mg 07/14/20 10:00 07/16/20 22:47 Famotidine 20 Mg/2 Ml Inj IV 20 mg BID CINDY Administration Hydromorphone HCl 0.25 mg 07/14/20 01:00 07/17/20 03:38 Hydromorphone 1 Mg/1 Ml Inj IV 0.25 mg Q4H PRN Administration Pain, Moderate (4-6) Sodium Chloride 1,000 mls @ 100 mls/hr 07/14/20 01:00 07/17/20 03:38 Nacl 0.9% 1000 Ml IV 100 mls/hr DIRECT CINDY Administration Ceftriaxone Sodium 2 gm in 100 mls @ 200 mls/hr 07/14/20 10:00 07/16/20 09:01 Rocephin/Ns 2 Gm/100 Ml IV 200 mls/hr Q24HR CINDY Administration Protocol Magnesium Hydroxide 30 ml 07/14/20 01:00 Magnesium Hydroxide (Mom) Oral Liqd Udc PO Q4H PRN Constipation Metoclopramide HCl 10 mg 07/14/20 01:00 Metoclopramide 10 Mg/2 Ml Inj IV Q6H PRN Nausea And Vomiting Ondansetron HCl 4 mg 07/14/20 01:00 Ondansetron 4 Mg/2 Ml Inj IV Q8H PRN Nausea And Vomiting Senna 8.6 mg 07/14/20 01:00 Sennosides 8.6 Mg Tab PO Q12HR PRN Constipation Sodium Chloride 10 ml 07/14/20 10:00 07/16/20 22:47 Sodium Chloride 0.9% 10 Ml Flush Syringe IV 10 ml BID CINDY Administration Sodium Chloride 10 ml 07/14/20 00:21 Sodium Chloride 0.9% 10 Ml Flush Syringe IV PRN PRN LINE FLUSH
[2020-07-17 08:40] LABS: Basophils % (Auto) 0.4 % (0.0-1.8); Eosinophils # (Auto) 0.1 K/mm3 (0.0-0.4); Hematocrit 34.7 % (30.3-42.9); Hemoglobin 11.8 gm/dl (10.1-14.3); Lymphocytes % (Auto) 30.9 % (13.4-35.0); Mean Corpuscular HGB Conc 34 % (30-34); Mean Corpuscular Volume 90 fl (79-97); Monocytes # (Auto) 0.7 K/mm3 (0.0-0.8); Platelet Count 199 K/mm3 (140-440); Red Blood Count 3.84 M/mm3 (3.65-5.03); Red Cell Distribution Width 13.8 % (13.2-15.2)
[2020-07-17 08:46] LABS: Blood Urea Nitrogen 6 mg/dL (7-17); Calcium 8.1 mg/dL (8.4-10.2); Hemolysis Index 1
[2020-07-17 08:57] LABS: BUN/Creatinine Ratio 12
[2020-07-17] MEDS: cefTRIAXone/NS 2 GM/100 ML 2 GM/100 ML BAG IV SCH (09:42)
[2020-07-17] MEDS: ENOXAPARIN 40 MG/0.4 ML INJ SUB-Q SCH (09:43)
[2020-07-17] MEDS: FAMOTIDINE 20 MG/2 ML INJ IV SCH ×2 (09:43→22:20)
--- NOTE | 2020-07-17 11:22 | Progress Note ---
Assessment and Plan Cultures: Blood Culture no growth today Urine culture gram-negative bacilli Assessment: 24-year-old female with history of obesity, admitted on 07/13/2020 secondary to 2-day history of diffuse abdominal pain, nausea, vomiting: #Sepsis: improving, leukocytosis resolved; source pyelonephritis. #Pyelonephritis with possible left kidney abscess: CT shows left pyelonephritis with a possible abscess 2 x 1 cm. CRP=21. Ultrasound showed left kidney larger than right. Recommendations: -Follow-up urine culture growing gram-negative bacilli -> still pending? -Continue ceftriaxone 2 g IV once a day -If urine culture isolate is susceptible to Levaquin, will discharge on Levaquin 750 mg p.o. once a day total 10 days (morbidly obese BMI 40) -CRP is improving -Urine culture still pending, ideally would wait for finalization to ensure sensitive. If patient wants to leave would go with above plan. Will follow. Marisabel Rueda MD [facility] ([facility]) O: [phone] F: [phone] Subjective Date of service: 07/17/20 Principal diagnosis: UTI Interval history: Afebrile now, normal white count. Objective - Exam Narrative Exam: General appearance: Alert in NAD pleasant Eyes: anicteric sclerae, moist conjunctivae; no lid-lag; HENT: Normocephalic, Atraumatic; normal external ears, nares open, oropharynx clear Neck: supple, tracheal midline, no JVD Lungs: Clear to auscultation CV: RRR no murmur Abdomen: Soft, diffuse tenderness. Extremities: no edema, no cyanosis Skin: No rash. Psych: not agitated Neuro: alert and oriented x 3. Moving all extremities - Constitutional Vitals: Vital Signs Temp Pulse Resp BP Pulse Ox 97.5 F L 83 18 113/75 97 07/17/20 04:43 07/17/20 04:43 07/17/20 04:43 07/17/20 04:43 07/17/20 04:43 Temperature -Last 24 Hours Temperature 97.5 F Temperature 97.8 F Temperature 98.7 F Temperature 99.7 F - Labs CBC & Chem 7: 07/17/20 08:11 07/17/20 08:11 Labs: Abnormal lab results 07/16/20 07/17/20 Range/Units 15:02 08:11 Sodium 131 L (137-145) mmol/L Chloride 96.4 L (98-107) mmol/L BUN 6 L (7-17) mg/dL Creatinine 0.5 L (0.6-1.2) mg/dL Glucose 250 H (65-100) mg/dL Calcium 8.1 L (8.4-10.2) mg/dL C-Reactive Protein 8.80 H (0.00-1.30) mg/dL
--- NOTE | 2020-07-17 15:48 | Consultation ---
History of Present Illness - Reason for Consult Consult date: 07/17/20 Renal abscess Requesting physician: MIRA QUINTANILLA - History of Present Illness 24-year-old -Swiss female patient presents with complaints of nausea, vomiting, and abdominal pain x2 days. She denies any hematemesis/coffee-ground emesis, stool changes, or urinary symptoms. No cough or shortness of breath per patient. She rates her current abdominal pain as a 9/10 in severity. No known sick contacts per patient. Patient also denies any past medical history. Vascular and interventional radiology contacted for evaluation for renal abscess. Reviewed imaging and noted small fluid collection anterior to the left renal hilum. This is not very amenable to drainage, and would only be amenable to aspiration. Given the culture positive data, I am not sure how important this is. Past History Past Surgical History: No surgical history Social history: no significant social history Family history: no significant family history Medications and Allergies Allergies Allergy/AdvReac Type Severity Reaction Status Date / Time No Known Allergies Allergy Verified 03/16/20 20:12 Home Medications Medication Instructions Recorded Confirmed Last Taken Type Acetaminophen/Codeine [Tylenol 1 tab PO Q6H PRN #10 tab 03/16/20 Unknown Rx /Codeine # 3 tab] Silver Sulfadiazine [Silvadene] 25 gm TP BID #1 cream..g. 03/16/20 Unknown Rx Azithromycin [Zithromax Z-MATT] 0 mg PO DAILY #6 tab 07/14/20 Unknown Rx Ibuprofen [Motrin 800 MG tab] 800 mg PO Q8HR PRN #24 tablet 07/14/20 Unknown Rx Active Meds: Active Medications Acetaminophen (Acetaminophen 325 Mg Tab) 650 mg PO Q4H PRN PRN Reason: Pain MILD(1-3)/Fever >100.5/[place] Last Admin: 07/15/20 09:22 Dose: 650 mg Documented by: Al Hydrox/Mg Hydrox/Simethicone (Alum-Mag Hydroxide-Simethicone [phone]/5ml Oral Liqd 30 Ml) 30 ml PO Q4H PRN PRN Reason: Indigestion Enoxaparin Sodium (Enoxaparin 40 Mg/0.4 Ml Inj) 40 mg SUB-Q DAILY CINDY; Protocol Last Admin: 07/17/20 09:43 Dose: 40 mg Documented by: Famotidine (Famotidine 20 Mg/2 Ml Inj) 20 mg IV BID [facility] Last Admin: 07/17/20 09:43 Dose: 20 mg Documented by: Hydromorphone HCl (Hydromorphone 1 Mg/1 Ml Inj) 0.25 mg IV Q4H PRN PRN Reason: Pain, Moderate (4-6) Last Admin: 07/17/20 09:45 Dose: 0.25 mg Documented by: Sodium Chloride (Nacl 0.9% 1000 Ml) 1,000 mls @ 100 mls/hr IV DIRECT CINDY Last Admin: 07/17/20 03:38 Dose: 100 mls/hr Documented by: Ceftriaxone Sodium (Rocephin/Ns 2 Gm/100 Ml) 2 gm in 100 mls @ 200 mls/hr IV Q24HR [facility]; Protocol Last Admin: 07/17/20 09:42 Dose: 200 mls/hr Documented by: Magnesium Hydroxide (Magnesium Hydroxide (Mom) Oral Liqd Udc) 30 ml PO Q4H PRN PRN Reason: Constipation Metoclopramide HCl (Metoclopramide 10 Mg/2 Ml Inj) 10 mg IV Q6H PRN PRN Reason: Nausea And Vomiting Ondansetron HCl (Ondansetron 4 Mg/2 Ml Inj) 4 mg IV Q8H PRN PRN Reason: Nausea And Vomiting Senna (Sennosides 8.6 Mg Tab) 8.6 mg PO Q12HR PRN PRN Reason: Constipation Sodium Chloride (Sodium Chloride 0.9% 10 Ml Flush Syringe) 10 ml IV BID [facility] Last Admin: 07/17/20 09:49 Dose: 10 ml Documented by: Sodium Chloride (Sodium Chloride 0.9% 10 Ml Flush Syringe) 10 ml IV PRN PRN PRN Reason: LINE FLUSH Review of Systems All systems: negative (see HPI) Exam - Constitutional Vitals: Temp Pulse Resp BP Pulse Ox 97.4 F L 85 18 127/71 95 07/17/20 10:22 07/17/20 10:22 07/17/20 10:22 07/17/20 10:22 07/17/20 10:22 General appearance: Present: mild distress (Appears to have some developmental delay and appears to exaggerates discomfort) - EENT Eyes: Present: EOM intact ENT: hearing intact - Respiratory Respiratory effort: normal - Abdominal General gastrointestinal: Present: tender (Left flank) - Psychiatric Psychiatric: appropriate mood/affect, cooperative Results - Labs CBC & Chem 7: 07/17/20 08:11 07/17/20 08:11 Labs: Abnormal lab results 07/16/20 07/17/20 Range/Units 15:02 08:11 Sodium 131 L (137-145) mmol/L Chloride 96.4 L (98-107) mmol/L BUN 6 L (7-17) mg/dL Creatinine 0.5 L (0.6-1.2) mg/dL Glucose 250 H (65-100) mg/dL Calcium 8.1 L (8.4-10.2) mg/dL C-Reactive Protein 8.80 H (0.00-1.30) mg/dL Assessment and Plan 24-year-old female who appears to have some cognitive delay presents with left- sided pyelonephritis with renal abscess. The renal abscess is not amenable to percutaneous drainage due to the location, but it is also quite small in size. Patient already has culture positive data and aspiration will not provide significant benefit. Recommend antibiotics and repeat imaging.
[2020-07-18] MEDS: SODIUM CHLORIDE 0.9% 1000 ML 1,000 ML IV SCH (04:43)
[2020-07-18] MEDS: HYDROmorphone 1 MG/1 ML INJ IV PRN ×3 (04:45→21:30)
[2020-07-18 08:08] LABS: Basophils # (Auto) 0.1 K/mm3 (0.0-0.1); Basophils % (Auto) 0.5 % (0.0-1.8); Eosinophils # (Auto) 0.1 K/mm3 (0.0-0.4); Hematocrit 35.8 % (30.3-42.9); Hemoglobin 12.2 gm/dl (10.1-14.3); Lymphocytes # (Auto) 3.6 K/mm3 (1.2-5.4); Lymphocytes % (Auto) 34.1 % (13.4-35.0); Mean Corpuscular HGB Conc 34 % (30-34); Mean Corpuscular Volume 89 fl (79-97); Monocytes # (Auto) 0.7 K/mm3 (0.0-0.8); Monocytes % (Auto) 6.8 % (0.0-7.3); Platelet Count 250 K/mm3 (140-440); Red Blood Count 4.05 M/mm3 (3.65-5.03)
[2020-07-18 08:29] LABS: Blood Urea Nitrogen 6 mg/dL (7-17); Calcium 9.2 mg/dL (8.4-10.2); Hemolysis Index 0
[2020-07-18 08:34] LABS: BUN/Creatinine Ratio 15
[2020-07-18] MEDS: cefTRIAXone/NS 2 GM/100 ML 2 GM/100 ML BAG IV SCH (10:15)
[2020-07-18] MEDS: ENOXAPARIN 40 MG/0.4 ML INJ SUB-Q SCH (10:16)
[2020-07-18] MEDS: FAMOTIDINE 20 MG/2 ML INJ IV SCH ×2 (10:16→21:33)
--- NOTE | 2020-07-18 10:45 | Progress Note ---
Assessment and Plan Assessment and plan: --Left pyelonephritis with possible abscess; Interventional radiologist evaluated the patient for possible abscess As cultures are positive, recommend to treat with antibiotics And repeat imaging after antibiotic treatment is completed Patient may follow-up with IR and ID upon discharge --Sepsis; secondary to pyelonephritis Patient is on IV Rocephin, ID following --ESBL E. coli positive urine cultures; Contact isolation, continue Rocephin May discharge on Levaquin total 14 days --Hyponatremia; present on admission significant improvement Closely monitor electrolytes --Hypokalemia; present on admission, resolved --Morbid obesity; BMI 41.1 Patient needs weight reduction when medically stable --DVT prophylaxis; Lovenox We will closely monitor the patient and adjust management as needed Plan of care reviewed with the patient and her nurse Possible discharge home tomorrow if stable 07/14/2020. Interventional radiology consultation pending for possible percutaneous drainage if needed. Continue IV antibiotics and await ID consultation. Replete sodium and potassium. Follow-up blood and urine cultures. 07/15/2020. Follow-up renal ultrasound. Urology recommends conservative management. IR consulted. Continue ceftriaxone 2 g IV daily per ID recommendations. Follow-up CRP, blood and urine cultures 07/16/2020. Renal ultrasound reveals no evidence of hydronephrosis. The left ki dney is enlarged with respect to the right kidney. No perinephric fluid collections identified. Continue conservative management with supportive care and IV antibiotics of ceftriaxone 2 g IV daily per ID and urology recommendations. Follow-up CRP, blood and urine cultures. 07/17/2020. Urine culture reveals gram-negative bacilli. Follow-up identification and sensitivities. Continue ceftriaxone per ID recommendations. Consider discharge with Levaquin 750 p.o. for total of 10 days. Blood cultures remain negative. Anticipate discharge later today or in a.m. 07/18/2020; IR evaluated the patient, as urine cultures are positive, recommend to continue antibiotic treatment, repeat imaging study ID recommended to discharge on Levaquin for 14 days We will closely monitor the patient and possible discharge tomorrow if stable History Interval history: I have seen and examined the patient at the bedside And feels slightly better, still has some left flank pain Afebrile Vital signs noted Hospitalist Physical - Constitutional Vitals: Temp Pulse Resp BP Pulse Ox 97.5 F L 69 17 118/77 98 07/18/20 04:43 07/18/20 04:43 07/18/20 05:15 07/18/20 04:43 07/18/20 04:43 General appearance: Present: mild distress (Appears to have some developmental delay and appears to exaggerates discomfort), well-nourished, obese (Morbidly obese) - EENT Eyes: Present: PERRL, EOM intact - Neck Neck: Present: supple, normal ROM - Respiratory Respiratory effort: normal Respiratory: bilateral: diminished, negative: rales, rhonchi, wheezing - Cardiovascular Rhythm: regular Heart Sounds: Present: S1 & S2 - Extremities Extremities: no ischemia, No edema - Abdominal General gastrointestinal: soft, non-tender, non-distended, normal bowel sounds - Integumentary Integumentary: Present: clear, warm - Psychiatric Psychiatric: appropriate mood/affect, cooperative - Neurologic Neurologic: CNII-XII intact, moves all extremities Results - Labs CBC & Chem 7: 07/18/20 06:55 07/18/20 06:55 Labs: Laboratory Last Values WBC 10.7 K/mm3 (4.5-11.0) 07/18/20 06:55 RBC 4.05 M/mm3 (3.65-5.03) 07/18/20 06:55 Hgb 12.2 gm/dl (10.1-14.3) 07/18/20 06:55 Hct 35.8 % (30.3-42.9) 07/18/20 06:55 MCV 89 fl (79-97) 07/18/20 06:55 MCH 30 pg (28-32) 07/18/20 06:55 MCHC 34 % (30-34) 07/18/20 06:55 RDW 14.0 % (13.2-15.2) 07/18/20 06:55 Plt Count 250 K/mm3 (140-440) 07/18/20 06:55 Lymph % (Auto) 34.1 % (13.4-35.0) 07/18/20 06:55 [place] % (Auto) 6.8 % (0.0-7.3) 07/18/20 06:55 Eos % (Auto) 1.0 % (0.0-4.3) 07/18/20 06:55 Baso % (Auto) 0.5 % (0.0-1.8) 07/18/20 06:55 Lymph # (Auto) 3.6 K/mm3 (1.2-5.4) 07/18/20 06:55 [place] # (Auto) 0.7 K/mm3 (0.0-0.8) 07/18/20 06:55 Eos # (Auto) 0.1 K/mm3 (0.0-0.4) 07/18/20 06:55 Baso # (Auto) 0.1 K/mm3 (0.0-0.1) 07/18/20 06:55 Seg Neutrophils % 57.6 % (40.0-70.0) 07/18/20 06:55 Seg Neutrophils # 6.2 K/mm3 (1.8-7.7) 07/18/20 06:55 Sodium 136 mmol/L (137-145) L 07/18/20 06:55 Potassium 3.8 mmol/L (3.6-5.0) 07/18/20 06:55 Chloride 98.9 mmol/L (98-107) 07/18/20 06:55 Carbon Dioxide 27 mmol/L (22-30) 07/18/20 06:55 Anion Gap 14 mmol/L 07/18/20 06:55 BUN 6 mg/dL (7-17) L 07/18/20 06:55 Creatinine 0.4 mg/dL (0.6-1.2) L 07/18/20 06:55 Estimated GFR > 60 ml/min 07/18/20 06:55 BUN/Creatinine Ratio 15 % 07/18/20 06:55 Glucose 169 mg/dL (65-100) H 07/18/20 06:55 Lactic Acid 1.10 mmol/L (0.7-2.0) 07/13/20 23:05 Calcium 9.2 mg/dL (8.4-10.2) 07/18/20 06:55 Magnesium 2.00 mg/dL (1.7-2.3) 07/14/20 05:38 Total Bilirubin 0.20 mg/dL (0.1-1.2) 07/15/20 05:39 AST 25 units/L (5-40) 07/15/20 05:39 ALT 19 units/L (7-56) 07/15/20 05:39 Alkaline Phosphatase 114 units/L (35-129) 07/15/20 05:39 C-Reactive Protein 8.80 mg/dL (0.00-1.30) H 07/16/20 15:02 Total Protein 6.9 g/dL (6.3-8.2) 07/15/20 05:39 Albumin 3.2 g/dL (3.9-5) L 07/15/20 05:39 Albumin/Globulin Ratio 0.9 % 07/15/20 05:39 Lipase 12 units/L (13-60) L 07/13/20 21:16 Urine Color [place] (Yellow) 07/13/20 Unknown Urine Turbidity Cloudy (Clear) 07/13/20 Unknown Urine pH 6.0 (5.0-7.0) 07/13/20 Unknown Ur Specific [place] 1.020 (1.003-1.030) 07/13/20 Unknown Urine Protein 100 mg/dl mg/dL (Negative) 07/13/20 Unknown Urine Glucose (UA) Neg mg/dL (Negative) 07/13/20 Unknown Urine Ketones Tr mg/dL (Negative) 07/13/20 Unknown Urine Blood Mod (Negative) 07/13/20 Unknown Urine Nitrite Pos (Negative) 07/13/20 Unknown Urine Bilirubin Neg (Negative) 07/13/20 Unknown Urine Urobilinogen 4.0 mg/dL (<2.0) 07/13/20 Unknown Ur Leukocyte Esterase Lg (Negative) 07/13/20 Unknown Urine WBC (Auto) > 182.0 /HPF (0.0-6.0) H 07/13/20 Unknown Urine RBC (Auto) 32.0 /HPF (0.0-6.0) 07/13/20 Unknown U Epithel Cells (Auto) 13.0 /HPF (0-13.0) 07/13/20 Unknown Urine Bacteria (Auto) 4+ /HPF (Negative) 07/13/20 Unknown Urine Mucus 2+ /HPF 07/13/20 Unknown Urine Yeast (Budding) 2+ /HPF 07/13/20 Unknown Urine HCG, Qual Negative (Negative) 07/13/20 Unknown Blood Type O POSITIVE 07/14/20 01:20 Antibody Screen Negative 07/14/20 01:20 Microbiology: Microbiology 07/13/20 23:05 Peripheral/Venous Blood Culture - Preliminary NO GROWTH AFTER 4 DAYS 07/13/20 22:45 Peripheral/Venous Blood Culture - Preliminary NO GROWTH AFTER 4 DAYS 07/14/20 Unknown Urine,Clean Catch Urine Culture - Final Escherichia Coli Cosme/IV: Voiding Method Toilet Active Medications - Current Medications Current Medications: Generic Name Dose Route Start Last Admin Trade Name Freq PRN Reason Stop Dose Admin Acetaminophen 650 mg 07/14/20 01:00 07/15/20 09:22 Acetaminophen 325 Mg Tab PO 650 mg Q4H PRN Administration Pain MILD(1-3)/Fever >100.5/[place] Al Hydrox/Mg Hydrox/Simethicone 30 ml 07/14/20 01:00 Alum-Mag Hydroxide-Simethicone 680-610-28gw/5ml Oral Liqd 30 Ml PO Q4H PRN Indigestion Enoxaparin Sodium 40 mg 07/14/20 10:00 07/18/20 10:16 Enoxaparin 40 Mg/0.4 Ml Inj SUB-Q 40 mg DAILY CINDY Administration Protocol Famotidine 20 mg 07/14/20 10:00 07/18/20 10:16 Famotidine 20 Mg/2 Ml Inj IV 20 mg BID CINDY Administration Hydromorphone HCl 0.25 mg 07/18/20 10:07 Hydromorphone 1 Mg/1 Ml Inj IV Q8HR PRN Pain, Moderate (4-6) Sodium Chloride 1,000 mls @ 100 mls/hr 07/14/20 01:00 07/18/20 04:43 Nacl 0.9% 1000 Ml IV 100 mls/hr DIRECT CINDY Administration Ceftriaxone Sodium 2 gm in 100 mls @ 200 mls/hr 07/14/20 10:00 07/18/20 10:15 Rocephin/Ns 2 Gm/100 Ml IV 200 mls/hr Q24HR CINDY Administration Protocol Magnesium Hydroxide 30 ml 07/14/20 01:00 Magnesium Hydroxide (Mom) Oral Liqd Udc PO Q4H PRN Constipation Metoclopramide HCl 10 mg 07/14/20 01:00 Metoclopramide 10 Mg/2 Ml Inj IV Q6H PRN Nausea And Vomiting Ondansetron HCl 4 mg 07/14/20 01:00 Ondansetron 4 Mg/2 Ml Inj IV Q8H PRN Nausea And Vomiting Senna 8.6 mg 07/14/20 01:00 Sennosides 8.6 Mg Tab PO Q12HR PRN Constipation Sodium Chloride 10 ml 07/14/20 10:00 07/18/20 10:16 Sodium Chloride 0.9% 10 Ml Flush Syringe IV 10 ml BID CINDY Administration Sodium Chloride 10 ml 07/14/20 00:21 Sodium Chloride 0.9% 10 Ml Flush Syringe IV PRN PRN LINE FLUSH
--- NOTE | 2020-07-18 11:40 | Progress Note ---
Assessment and Plan Cultures: Blood Culture no growth today Urine culture ESBL E coli Assessment: 24-year-old female with history of obesity, admitted on 07/13/2020 secondary to 2-day history of diffuse abdominal pain, nausea, vomiting: #Sepsis: improving, leukocytosis resolved; source pyelonephritis. #Pyelonephritis with possible left kidney abscess: CT shows left pyelonephritis with a possible abscess 2 x 1 cm. CRP=21. Ultrasound showed left kidney larger than right. ESBL E coli, remains sensitive to fluoroquinolones. Recommendations: -Continue ceftriaxone 2 g IV once a day -OK to discharge on Levaquin 750 mg p.o. once a day total 14 days (morbidly obese BMI 40, ESBL in culture) -CRP is improving -Follow up in office in 2 weeks for repeat labs including CRP to ensure improvement. Will follow. Marisabel Rueda MD [facility] ([facility]) O: [phone] F: [phone] Subjective Date of service: 07/18/20 Principal diagnosis: UTI Interval history: Afebrile, normal white count. Objective - Exam Narrative Exam: General appearance: Alert in NAD pleasant Eyes: anicteric sclerae, moist conjunctivae; no lid-lag; HENT: Normocephalic, Atraumatic; normal external ears, nares open, oropharynx clear Neck: supple, tracheal midline, no JVD Lungs: Clear to auscultation CV: RRR no murmur Abdomen: Soft, diffuse tenderness. Extremities: no edema, no cyanosis Skin: No rash. Psych: not agitated Neuro: alert and oriented x 3. Moving all extremities - Constitutional Vitals: Vital Signs Temp Pulse Resp BP Pulse Ox 97.5 F L 69 17 118/77 98 07/18/20 04:43 07/18/20 04:43 07/18/20 05:15 07/18/20 04:43 07/18/20 04:43 Temperature -Last 24 Hours Temperature 97.5 F Temperature 98.7 F Temperature 97.8 F - Labs CBC & Chem 7: 07/18/20 06:55 07/18/20 06:55 Labs: Abnormal lab results 07/18/20 Range/Units 06:55 Sodium 136 L (137-145) mmol/L BUN 6 L (7-17) mg/dL Creatinine 0.4 L (0.6-1.2) mg/dL Glucose 169 H (65-100) mg/dL
[2020-07-18] MEDS: levoFLOXacin 750 MG TAB PO SCH (13:11)
[2020-07-19] MEDS: SODIUM CHLORIDE 0.9% 1000 ML 1,000 ML IV SCH (00:29)
[2020-07-19] MEDS ORDERED: TEMAZEPAM 15 MG CAP PO ONE (01:49)
[2020-07-19] MEDS: ENOXAPARIN 40 MG/0.4 ML INJ SUB-Q SCH (09:42)
[2020-07-19] MEDS: levoFLOXacin 750 MG TAB PO SCH (09:42)
--- NOTE | 2020-07-19 09:47 | Discharge Summary ---
Providers - Providers Date of Admission: 07/14/20 00:21 Date of discharge: 07/19/20 Attending physician: REGINA BURK 07/14/20 01:00 Consult to Physician [CONS] Stat Comment: Consulting Provider: [facility] Physician Instructions: Reason For Exam: uti 07/14/20 07:25 Consult to Interventional Radiology [CONS] Routine Consulting Provider: PJ TRIPATHI Reason For Exam: pecutaneous drain left kidney abscess Place consult to:: dr. tripathi Notified:: office Phone number called:: [phone] Was contact made?: No Time called:: 10:37 Comment:: vm came on saying ext. not working Primary care physician: PERSONAL FINANCIAL REPRESENTATIVE Hospitalization Reason for admission: Abdominal pain / sepsis /UTI Condition: Stable Pertinent studies: CT abdomen and pelvis;Pyelonephritis left kidney with possible abscess ,adjacent inflammation and reactive appearing adenopathy, complex lesion right ovary represent multiple cysts better evaluated with ultrasound if clinically indicated Renal ultrasound: No hydronephrosis Hospital course: 24-year-old morbidly obese female patient was admitted on 07/13/2020 with 2 days history of abdominal pain nausea and vomiting Work-up is consistent with sepsis secondary to pyelonephritis. Patient was started on empiric antibiotics evaluated by ID medications optimized CT scan show possible left kidney abscess, however renal ultrasound did not show that IR evaluated the patient recommended antibiotic management at this point and repeat imaging study to rule out abscess Urine cultures are positive for positive for E. coli ESBL managed per sensitivities ID recommended Levaquin Patient's symptoms improved Today patient is comfortable no new complaints vital signs stable Physical examination prior to discharge is unremarkable Cleared by all the consultants for discharge and follow-up per schedule Stable at discharge Discharge diagnosis; --Left pyelonephritis with possible abscess[on CT abdomen no abscess on ultrasound; Interventional radiologist evaluated the patient for possible abscess Advised antibiotic therapy and And repeat imaging after antibiotic treatment is completed Patient may follow-up with IR and ID upon discharge --Sepsis; secondary to pyelonephritis Patient is on empiric antibiotics, DC on Levaquin per ID --ESBL E. coli positive urine cultures; Contact isolation, received empiric antibiotics May discharge on Levaquin total 14 days --Hyponatremia; present on admission significant improvement --Hypokalemia; present on admission, resolved --Morbid obesity; BMI 41.1 Patient needs weight reduction when medically stable --DVT prophylaxis; Lovenox Patient is cleared by all the consultants for discharge And follow-up per schedule Stable at discharge Disposition: DC-01 TO HOME OR SELFCARE Final Discharge Diagnosis (Prints w/discharge instructions): Left pyelonephritis. ESBL UTI. Hypokalemia. Hyponatremia. Morbid obesity BMI 41 Time spent for discharge: 35 min Core Measure Documentation - Palliative Care Palliative Care/ Comfort Measures: Not Applicable - Core Measures Any of the following diagnoses?: none Exam - Constitutional Vitals: Temp Pulse Resp BP Pulse Ox 98.9 F 75 16 118/60 100 07/19/20 06:22 07/19/20 06:22 07/19/20 06:22 07/19/20 06:22 07/19/20 06:22 General appearance: Present: no acute distress, obese (Morbidly obese) - EENT Eyes: Present: PERRL, EOM intact - Neck Neck: Present: supple, normal ROM - Respiratory Respiratory effort: normal Respiratory: bilateral: diminished, negative: rales, rhonchi, wheezing - Cardiovascular Rhythm: regular Heart Sounds: Present: S1 & S2 - Extremities Extremities: no ischemia, No edema - Abdominal General gastrointestinal: Present: soft, non-tender, non-distended, normal bowel sounds Localized gastrointestinal: guarding: LLQ - Integumentary Integumentary: Present: clear, warm - Musculoskeletal Musculoskeletal: strength equal bilaterally, generalized weakness - Psychiatric Psychiatric: appropriate mood/affect - Neurologic Neurologic: moves all extremities Plan Activity: advance as tolerated Diet: other (Cardiac diet) Additional Instructions: Advised to comply with medications follow-up visits. Exercise as tolerated and weight reduction. If you have worsening symptoms contact MD or go to emergency room. Advised to follow with primary care physician and ID per schedule Follow up with: CAREN FARIAS MD [Primary Care Provider] - 7 Days JULIANN BOJORQUEZ MD [Staff Physician] - 14 Days Prescriptions: levoFLOXacin [Levaquin TAB] 750 mg PO DAILY #13 tablet Ibuprofen [Motrin 800 MG tab] 800 mg PO Q8HR PRN #24 tablet PRN Reason: pain/fever Famotidine [Pepcid] 20 mg PO BID #20 tablet
[2020-07-19] MEDS ORDERED: FAMOTIDINE 20 MG TAB PO SCH (10:00)
[2020-07-19 13:35] VITALS: BP 125/71
== END 2020-07-19 13:45 | disposition home or self-care (01) | DRG 871 ==
LOC: ED 19:15 → 3A 07-14 00:21
PROVIDERS: ADMIT Internal Medicine Geriatric Medicine; ATTEND Internal Medicine
DX: A41.51 Sepsis due to Escherichia coli [E. coli] (principal); N15.1 Renal and perinephric abscess; N10 Acute pyelonephritis; E87.1 Hypo-osmolality and hyponatremia; E66.01 Morbid (severe) obesity due to excess calories; J06.0 Acute laryngopharyngitis; B96.89 Other specified bacterial agents as the cause of diseases classified elsewhere; D72.829 Elevated white blood cell count, unspecified; E87.6 Hypokalemia; R73.9 Hyperglycemia, unspecified; B96.20 Unspecified Escherichia coli [E. coli] as the cause of diseases classified elsewhere; Z68.41 Body mass index [BMI] 40.0-44.9, adult; Z79.899 Other long term (current) drug therapy; Z79.891 Long term (current) use of opiate analgesic; Z79.01 Long term (current) use of anticoagulants
CPT/HCPCS: 36415; 74177; 76770; 80048; 80053; 81001; 81025; 82140; 83690; 83735; 85025; 86140; 86850; 86900; 86901; 87040; 87076; 87086; 87186; 96365; 96375; 99406; G0378; J0692; J0696; J1170; J1650; J2270; J2405; J7030; Q9967

== ENCOUNTER 2020-08-07 12:21 | Emergency (ER) | payer MEDICAID ==
[2020-08-07 13:22] VITALS: BP 133/85
--- NOTE | 2020-08-07 15:27 | Event Note ---
ED Screening Note Date of service: 08/07/20 Time: 15:22 ED Screening Note: 24-year-old female patient with recent history of sepsis secondary to pyelonephritis, questionable renal abscess, ESBL E. coli positive urine culture, hyponatremia, and hypokalemia presents to the emergency department with complaints of right lower back pain and urinary discoloration starting last night. Patient states symptoms are reminiscent of her last kidney infection less than 1 month ago. She also complains of abnormal vaginal bleeding starting last night. Nexplanon in place. General: Awake, appropriately interactive, no acute distress. Neck: Supple. Full range of motion intact. Cardiovascular: Normal peripheral perfusion. Pulmonary: No respiratory distress. Patient is speaking normally without use of accessory muscles. Skin: No apparent rashes or lesions. Neurological: No facial asymmetry. Speech is clear. Follows commands. Patient is alert and oriented. Musculoskeletal: Moves all four extremities spontaneously with normal range of motion. Psych: Cooperative. Appropriate mood and affect. I have greeted and performed a focused rapid initial assessment of this patient. A comprehensive ED assessment and evaluation of the patient, analysis of all test results, and completion of the medical decision-making process will be conducted by additional ED providers. This initial assessment/diagnostic orders/clinical plan/treatment(s) is/are subject to change based on patients health status, clinical progression and re-assessment. Further treatment and workup at subsequent clinical provider's discretion. Patient/guardian urged not to elope from the ED as their condition may be serious if not clinically assessed and managed.
[2020-08-07 15:49] LABS: Basophils % (Auto) 0.5 % (0.0-1.8); Eosinophils # (Auto) 0.1 K/mm3 (0.0-0.4); Eosinophils % (Auto) 1.2 % (0.0-4.3); Hematocrit 36.2 % (30.3-42.9); Hemoglobin 12.5 gm/dl (10.1-14.3); Lymphocytes % (Auto) 46.3 % (13.4-35.0); Mean Corpuscular HGB Conc 35 % (30-34); Mean Corpuscular Volume 89 fl (79-97); Monocytes # (Auto) 0.5 K/mm3 (0.0-0.8); Monocytes % (Auto) 6.2 % (0.0-7.3); Platelet Count 263 K/mm3 (140-440); Red Blood Count 4.06 M/mm3 (3.65-5.03); Red Cell Distribution Width 14.2 % (13.2-15.2)
[2020-08-07 15:53] LABS: HCG Qualitative,Urine Negative (Negative)
[2020-08-07 15:56] LABS: Bilirubin,Urine NEG (Negative); Blood,Urine LG (Negative); Color,Urine Yellow (Yellow); Mucus,Urine FEW /HPF; Protein,Urine <15 mg/dL mg/dL (Negative)
[2020-08-07 16:08] LABS: Alanine Aminotransferase 15 units/L (7-56); Albumin 3.8 g/dL (3.9-5); Blood Urea Nitrogen 8 mg/dL (7-17); Hemolysis Index 4
[2020-08-07 16:11] LABS: BUN/Creatinine Ratio 11
--- NOTE | 2020-08-07 16:44 | Emergency Department Report ---
ED General Adult HPI - General Chief complaint: Urogenital-Female Stated complaint: BACK PAIN/KIDNEY Time Seen by Provider: 08/07/20 15:15 Source: patient Mode of arrival: Ambulatory Limitations: No Limitations - History of Present Illness Initial comments: This is a 24-year-old female who has a believe some of mentally challenged but not on psychiatric medication. The record indicates that the patient was admitted here for a renal abscess which was small and not amenable to percutaneous drainage. Dr. Kang vascular radiologist recommended repeat im aging. The patient was given Rocephin in the hospital and then continued with a prescription for Levaquin x14 days. Patient is extremely vague in her history; she seems to be stating that she never filled her prescription. She states that she did not take her medicine because it "had no refills". I did ask the patient specifically about Levaquin antibiotic that was prescribed. She seemed to be stating again she did not get that prescription filled. In any case, the patient returns to the emergency department complaining of bilateral flank pain. She cannot specify with side is more painful. She was found to have a left pyelonephritis with a possible small renal abscess in July. She clearly does not refer this examiner to her left side. She is somewhat hypomanic in her communication style; repeating the question, "am I going to get admitted now". The patient was informed that her labs and urinalysis was largely benign. However, especially in lieu of her possible noncompliance, we will repeat her diagnostic imaging. Patient also states that her last menses was heavy. She does not refer vaginal discharge or pelvic pain. 07/21 Admission and Consult: Assessment and Plan 24-year-old female who appears to have some cognitive delay presents with left- sided pyelonephritis with renal abscess. The renal abscess is not amenable to percutaneous drainage due to the location, but it is also quite small in size. Patient already has culture positive data and aspiration will not provide significant benefit. Recommend antibiotics and repeat imaging. Hospitalization Condition: Stable Hospital course: --Left pyelonephritis with possible abscess; Interventional radiologist evaluated the patient for possible abscess As cultures are positive, recommend to treat with antibiotics And repeat imaging after antibiotic treatment is completed Patient may follow-up with IR and ID upon discharge --Sepsis; secondary to pyelonephritis Patient is on IV Rocephin, ID following --ESBL E. coli positive urine cultures; Contact isolation, continue Rocephin May discharge on Levaquin total 14 days --Hyponatremia; present on admission significant improvement Closely monitor electrolytes --Hypokalemia; present on admission, resolved --Morbid obesity; BMI 41.1 Patient needs weight reduction when medically stable --DVT prophylaxis; Lovenox We will closely monitor the patient and adjust management as needed Plan of care reviewed with the patient and her nurse Possible discharge home tomorrow if stable 07/14/2020. Interventional radiology consultation pending for possible percutaneous drainage if needed. Continue IV antibiotics and await ID consultation. Replete sodium and potassium. Follow-up blood and urine cultures. 07/15/2020. Follow-up renal ultrasound. Urology recommends conservative management. IR consulted. Continue ceftriaxone 2 g IV daily per ID r ecommendations. Follow-up CRP, blood and urine cultures 07/16/2020. Renal ultrasound reveals no evidence of hydronephrosis. The left kidney is enlarged with respect to the right kidney. No perinephric fluid collections identified. Continue conservative management with supportive care and IV antibiotics of ceftriaxone 2 g IV daily per ID and urology recommendations. Follow-up CRP, blood and urine cultures. 07/17/2020. Urine culture reveals gram-negative bacilli. Follow-up identification and sensitivities. Continue ceftriaxone per ID recommendations. Consider discharge with Levaquin 750 p.o. for total of 10 days. Blood cultures remain negative. Anticipate discharge later today or in a.m. 07/18/2020; IR evaluated the patient, as urine cultures are positive, recommend to continue antibiotic treatment, repeat imaging study ID recommended to discharge on Levaquin for 14 days We will closely monitor the patient and possible discharge tomorrow if stable Disposition: [id number] TO HOME OR SELFCARE Final Discharge Diagnosis (Prints w/discharge instructions): Left pyelonephritis. ESBL UTI. Hypokalemia. Hyponatremia. Morbid obesity BMI 41 -: days(s) Location: abdomen (Bilateral flank) Radiation: non-radiation Quality: aching Consistency: intermittent Improves with: none Worsens with: none Associated Symptoms: denies other symptoms, other (Otherwise negative except for heavy and urinary frequency. ) Treatments Prior to Arrival: none - Related Data Previous Rx's Medication Instructions Recorded Last Taken Type Acetaminophen/Codeine [Tylenol 1 tab PO Q6H PRN #10 tab 03/16/20 Unknown Rx /Codeine # 3 tab] Silver Sulfadiazine [Silvadene] 25 gm TP BID #1 cream..g. 03/16/20 Unknown Rx Ibuprofen [Motrin 800 MG tab] 800 mg PO Q8HR PRN #24 tablet 07/14/20 Unknown Rx Famotidine [Pepcid] 20 mg PO BID #20 tablet 07/19/20 Unknown Rx levoFLOXacin [Levaquin TAB] 750 mg PO DAILY #13 tablet 07/19/20 Unknown Rx Naproxen [Naprosyn] 500 mg PO Q6H PRN #14 tablet 08/07/20 Unknown Rx metFORMIN [Glucophage] 500 mg PO BID #60 tablet 08/07/20 Unknown Rx Allergies Allergy/AdvReac Type Severity Reaction Status Date / Time No Known Allergies Allergy Verified 03/16/20 20:12 ED Review of Systems ROS: Stated complaint: BACK PAIN/KIDNEY Other details as noted in HPI Constitutional: denies: chills, fever Eyes: denies: eye pain, vision change ENT: denies: ear pain, throat pain Respiratory: denies: cough, shortness of breath Cardiovascular: denies: chest pain, palpitations Endocrine: no symptoms reported Gastrointestinal: as per HPI. denies: abdominal pain, nausea, diarrhea Genitourinary: urgency. denies: dysuria, discharge Musculoskeletal: denies: back pain, joint swelling, arthralgia Skin: denies: rash, lesions Neurological: denies: headache, weakness, paresthesias Psychiatric: denies: anxiety, depression Hematological/Lymphatic: denies: easy bleeding, easy bruising ED Past Medical Hx - Past Medical History Previous Medical History?: No Hx Congestive Heart Failure: No Hx Diabetes: No Hx Asthma: No Hx COPD: No Hx HIV: No - Social History Smoking Status: Former Smoker - Medications Home Medications: Home Medications Medication Instructions Recorded Confirmed Last Taken Type Acetaminophen/Codeine [Tylenol 1 tab PO Q6H PRN #10 tab 03/16/20 Unknown Rx /Codeine # 3 tab] Silver Sulfadiazine [Silvadene] 25 gm TP BID #1 cream..g. 03/16/20 Unknown Rx Ibuprofen [Motrin 800 MG tab] 800 mg PO Q8HR PRN #24 tablet 07/14/20 Unknown Rx Famotidine [Pepcid] 20 mg PO BID #20 tablet 07/19/20 Unknown Rx levoFLOXacin [Levaquin TAB] 750 mg PO DAILY #13 tablet 07/19/20 Unknown Rx Naproxen [Naprosyn] 500 mg PO Q6H PRN #14 tablet 08/07/20 Unknown Rx metFORMIN [Glucophage] 500 mg PO BID #60 tablet 08/07/20 Unknown Rx ED Physical Exam - General Limitations: No Limitations ED Course Vital Signs 08/07/20 13:21 Temperature 98.3 F Pulse Rate 86 Respiratory 20 Rate Blood Pressure 133/85 [Right] O2 Sat by Pulse 99 Oximetry ED Medical Decision Making - Lab Data Result diagrams: 08/07/20 15:27 08/07/20 15:27 Laboratory Results - last 24 hr 08/07/20 08/07/20 08/07/20 15:27 15:27 15:31 WBC 8.6 RBC 4.06 Hgb 12.5 Hct 36.2 MCV 89 MCH 31 MCHC 35 H RDW 14.2 Plt Count 263 Lymph % (Auto) 46.3 H [place] % (Auto) 6.2 Eos % (Auto) 1.2 Baso % (Auto) 0.5 Lymph # (Auto) 4.0 [place] # (Auto) 0.5 Eos # (Auto) 0.1 Baso # (Auto) 0.0 Seg Neutrophils % 45.8 Seg Neutrophils # 3.9 Sodium 134 L Potassium 3.9 Chloride 100.2 Carbon Dioxide 23 Anion Gap 15 BUN 8 Creatinine 0.7 Estimated GFR > 60 BUN/Creatinine Ratio 11 Glucose 252 H Calcium 9.0 Magnesium 2.00 Total Bilirubin 0.20 AST 18 ALT 15 Alkaline Phosphatase 132 H Total Protein 7.3 Albumin 3.8 L Albumin/Globulin Ratio 1.1 Urine Color Yellow Urine Turbidity Clear Urine pH 7.0 Ur Specific [place] 1.022 Urine Protein <15 mg/dl Urine Glucose (UA) >=500 Urine Ketones Neg Urine Blood Lg Urine Nitrite Neg Ur Reducing Substances Not Reportable Urine Bilirubin Neg Urine Ictotest Not Reportable Urine Urobilinogen 4.0 Ur Leukocyte Esterase Neg Urine WBC (Auto) 1.0 Urine RBC (Auto) 1.0 U Epithel Cells (Auto) 1.0 Urine Mucus Few Urine HCG, Qual Negative Critical care attestation.: If time is entered above; I have spent that time in minutes in the direct care of this critically ill patient, excluding procedure time. ED Disposition Clinical Impression: Flank pain, acute Type 2 diabetes mellitus with hyperglycemia Qualifiers: Diabetes mellitus senior living insulin use: with termite control servicer use Qualified Code(s): E11.65 - Type 2 diabetes mellitus with hyperglycemia; Z79.4 - residential (current) use of insulin Disposition: TO HOME OR SELFCARE Is pt being admited?: No Does the pt Need Aspirin: No Condition: Stable Instructions: Diabetes Mellitus Type 2 in Adults (ED), Type 2 Diabetes Mellitus, Self Care, Adult, [id number], Flank Pain, Adult Additional Instructions: Follow-up with primary care provider. Rx as needed for pain. Return to the emergency department any acute change or problem. Prescriptions: metFORMIN [Glucophage] 500 mg PO BID #60 tablet Naproxen [Naprosyn] 500 mg PO Q6H PRN #14 tablet PRN Reason: pain Referrals: PRIMARY CARE,MD [Primary Care Provider] - 3-5 Days [facility] [Provider Group] - 3-5 Days Time of Disposition: 18:03
[2020-08-07] MEDS ORDERED: SODIUM CHLORIDE 0.9% 1000 ML 1,000 ML IV ONE (16:45)
[2020-08-07] MEDS ORDERED: cefTRIAXone/NS 1 GM/50 ML 1 GM/50 ML BAG IV ONE (16:47)
[2020-08-07] MEDS ORDERED: LORazepam 2 MG/ML VIAL IV ONE (17:18)
--- NOTE | 2020-08-07 17:58 | Cat Scan Report ---
CT ABDOMEN AND PELVIS WITH CONTRAST INDICATION / CLINICAL INFORMATION: flank pain h/o renal abscess. TECHNIQUE: Axial CT images were obtained through the abdomen and pelvis after 100 mL Omnipaque [address] scans at this location are performed using CT dose reduction for ALARA by means of automated exposure control. COMPARISON: CT dated 07/13/20 FINDINGS: LOWER CHEST: No significant abnormality. LIVER: Diffusely hypodense characteristic of fatty infiltration. GALLBLADDER: No significant abnormality. BILE DUCTS: No significant abnormality. PANCREAS: No significant abnormality. SPLEEN: No significant abnormality. ADRENALS: No significant abnormality. RIGHT KIDNEY / URETER: No significant abnormality. LEFT KIDNEY / URETER: Interval improvement in focal inflammation/abscess as seen on the prior study w ith small residual area of low density and decreased enhancement. STOMACH / SMALL BOWEL: No significant abnormality. COLON: No significant abnormality. APPENDIX: Curvilinear metallic density within the appendix but no thickening or inflammation. PERITONEUM: No free fluid. No free air. No fluid collection. LYMPH NODES: No significant adenopathy. AORTA / ARTERIES: No significant abnormality. IVC / VEINS: No significant abnormality. URINARY BLADDER: No significant abnormality. REPRODUCTIVE ORGANS: No significant abnormality. Physiologic right ovarian cysts have resolved. ADDITIONAL FINDINGS: None. SKELETAL SYSTEM: No significant abnormality. IMPRESSION: 1. Interval improvement in left pyelonephritis/abscess with small amount of residual decreased enhanc ement in this location. 2. No new or acute abnormality. Signer Name: Michelle Howard MD Signed: 08/07/2020 5:53 PM Workstation Name: [id number]
[2020-08-07] MEDS ORDERED: fentaNYL 100 MCG/2 ML INJ IV ONE (18:17)
[2020-08-07] MEDS ORDERED: KETOROLAC 30 MG/1 ML INJ IV ONE (18:17)
== END 2020-08-07 18:45 | disposition home or self-care (01) ==
LOC: ED 12:21
DX: E11.65 Type 2 diabetes mellitus with hyperglycemia (principal); R10.9 Unspecified abdominal pain; Z87.891 Personal history of nicotine dependence; Z79.1 Long term (current) use of non-steroidal anti-inflammatories (NSAID); Z79.84 Long term (current) use of oral hypoglycemic drugs; Z79.899 Other long term (current) drug therapy
CPT/HCPCS: 36415; 74177; 80053; 81001; 81025; 83735; 85025; 87086; 96365; 96375; 99284; J0696; J1885; J2060; J3010; J7030; Q9967